=== PATIENT | male | born 1965 | race Caucasian/White ===

== ENCOUNTER 2019-08-15 10:35 | Inpatient (IN) | payer OTHER ==
--- NOTE | 2019-08-15 12:40 | ED ---
General Adult HPI - General Chief complaint: Urogenital Stated complaint: Blood in urine Time Seen by Provider: 08/15/19 11:05 Source: patient, RN notes reviewed Mode of arrival: ambulatory Limitations: no limitations - History of Present Illness Initial comments: This is a 53-year-old male who presents emergency Department with a 6 day history of hematuria. Patient states it started off with just a little pinkish urine and has now progressed to bright red blood with clots. Patient states he was given an antibiotic on Wednesday by his primary medical care doctor even though there was no definitive infection. Patient denies any abdominal pain. P atient denies any dysuria. Patient denies any flank pain. Patient denies any back pain. Patient denies any fever chills per patient denies any history of prostate problems patient denies any history of urinary tract infections. Patient denies any hematuria and the past. Patient denies any trauma. Patient is a smoker. - Related Data Home Medications Medication Instructions Recorded Confirmed Atorvastatin [Lipitor] 20 mg PO AC-SUPPER 11/22/17 08/15/19 Ciprofloxacin HCl [Cipro] 500 mg PO BID 08/15/19 08/15/19 Losartan/Hydrochlorothiazide 1 tab PO DAILY 08/15/19 08/15/19 [Losartan-Hctz 100-25 mg Tab] Allergies Allergy/AdvReac Type Severity Reaction Status Date / Time bee pollen Allergy Anaphylaxis Verified 08/15/19 13:38 Review of Systems ROS Statement: Those systems with pertinent positive or pertinent negative responses have been documented in the HPI. ROS Other: All systems not noted in ROS Statement are negative. Past Medical History Past Medical History: Hyperlipidemia, Hypertension History of Any Multi-Drug Resistant Organisms: None Reported Past Surgical History: Hernia Repair, Orthopedic Surgery, Tonsillectomy Additional Past Surgical History / Comment(s): left shoulder surg. Past Anesthesia/Blood Transfusion Reactions: No Reported Reaction Past Psychological History: No Psychological Hx Reported Smoking Status: Current every day smoker Past Alcohol Use History: Occasional Past Drug Use History: Marijuana General Exam - General Exam Comments Initial Comments: GENERAL: Patient is well-developed and well-nourished. Patient is nontoxic and well- hydrated and is in no acute distress. ENT: Neck is soft and supple. No significant lymphadenopathy is noted. Oropharynx is clear. Moist mucous membranes. Neck has full range of motion without eliciting any pain. EYES: The sclera were anicteric and conjunctiva were pink and moist. Extraocular movements were intact and pupils were equal round and reactive to light. Eyelids were unremarkable. PULMONARY: Unlabored respirations. Good breath sounds bilaterally. No audible rales rhonchi or wheezing was noted. CARDIOVASCULAR: There is a regular rate and rhythm without any murmurs gallops or rubs. ABDOMEN: Soft and nontender with normal bowel sounds. No palpable organomegaly was noted. There is no palpable pulsatile mass. SKIN: Skin is clear with no lesions or rashes and otherwise unremarkable. NEUROLOGIC: Patient is alert and oriented x3. Cranial nerves II through XII are grossly intact. Motor and sensory are also intact. Normal speech, volume and content. Symmetrical smile. MUSCULOSKELETAL: Normal extremities with adequate strength and full range of motion. LYMPHATICS: No significant lymphadenopathy is noted PSYCHIATRIC: Normal psychiatric evaluation. Limitations: no limitations Course Vital Signs 08/15/19 08/15/19 08/15/19 11:01 12:53 13:54 Temperature 98.4 F Pulse Rate 78 Respiratory 17 16 16 Rate Blood Pressure 131/87 O2 Sat by Pulse 97 Oximetry 08/15/19 08/15/19 15:00 17:00 Temperature 97.9 F Pulse Rate 74 Respiratory 16 16 Rate Blood Pressure 146/87 O2 Sat by Pulse 95 Oximetry Medical Decision Making - Medical Decision Making Patient's CAT scan showed an 8 x 8 x 9 cm renal carcinoma with probable metastatic disease regionally and possibly into the lung. I spoke with Dr. Ulloa as well as Dr. Griffin they agreed to accept the patient admission on consult I spoke with Dr. rodriguez and he agreed to accept the patient admitted the patient wrote admitting orders - Lab Data Result diagrams: 08/15/19 12:45 08/15/19 12:45 Lab Results 08/15/19 08/15/19 08/15/19 Range/Units 12:45 12:45 12:45 WBC 9.1 (3.8-10.6) k/uL RBC 5.29 (4.30-5.90) m/uL Hgb 14.6 (13.0-17.5) gm/dL Hct 42.4 (39.0-53.0) % MCV 80.1 (80.0-100.0) fL MCH 27.5 (25.0-35.0) pg MCHC 34.3 (31.0-37.0) g/dL RDW 13.3 (11.5-15.5) % Plt Count 380 (150-450) k/uL Neutrophils % 69 % Lymphocytes % 21 % Monocytes % 7 % Eosinophils % 2 % Basophils % 0 % Neutrophils # 6.2 (1.3-7.7) k/uL Lymphocytes # 1.9 (1.0-4.8) k/uL Monocytes # 0.6 (0-1.0) k/uL Eosinophils # 0.2 (0-0.7) k/uL Basophils # 0.0 (0-0.2) k/uL PT 10.3 (9.0-12.0) sec INR 1.0 (<1.2) APTT 25.3 (22.0-30.0) sec Sodium 141 (137-145) mmol/L Potassium 4.0 (3.5-5.1) mmol/L Chloride 102 (98-107) mmol/L Carbon Dioxide 27 (22-30) mmol/L Anion Gap 12 mmol/L BUN 19 (9-20) mg/dL Creatinine 1.01 (0.66-1.25) mg/dL Est GFR (CKD-EPI)AfAm >90 (>60 ml/min/1.73 sqM) Est GFR (CKD-EPI)NonAf 85 (>60 ml/min/1.73 sqM) Glucose 114 H (74-99) mg/dL Calcium 9.5 (8.4-10.2) mg/dL Total Bilirubin 0.5 (0.2-1.3) mg/dL AST 20 (17-59) U/L ALT 19 L (21-72) U/L Alkaline Phosphatase 117 (38-126) U/L Total Protein 7.9 (6.3-8.2) g/dL Albumin 4.1 (3.5-5.0) g/dL Urine Color Urine Appearance (Clear) Urine RBC (0-5) /hpf Urine WBC (0-5) /hpf 08/15/19 Range/Units 12:45 WBC (3.8-10.6) k/uL RBC (4.30-5.90) m/uL Hgb (13.0-17.5) gm/dL Hct (39.0-53.0) % MCV (80.0-100.0) fL MCH (25.0-35.0) pg MCHC (31.0-37.0) g/dL RDW (11.5-15.5) % Plt Count (150-450) k/uL Neutrophils % % Lymphocytes % % Monocytes % % Eosinophils % % Basophils % % Neutrophils # (1.3-7.7) k/uL Lymphocytes # (1.0-4.8) k/uL Monocytes # (0-1.0) k/uL Eosinophils # (0-0.7) k/uL Basophils # (0-0.2) k/uL PT (9.0-12.0) sec INR (<1.2) APTT (22.0-30.0) sec Sodium (137-145) mmol/L Potassium (3.5-5.1) mmol/L Chloride (98-107) mmol/L Carbon Dioxide (22-30) mmol/L Anion Gap mmol/L BUN (9-20) mg/dL Creatinine (0.66-1.25) mg/dL Est GFR (CKD-EPI)AfAm (>60 ml/min/1.73 sqM) Est GFR (CKD-EPI)NonAf (>60 ml/min/1.73 sqM) Glucose (74-99) mg/dL Calcium (8.4-10.2) mg/dL Total Bilirubin (0.2-1.3) mg/dL AST (17-59) U/L ALT (21-72) U/L Alkaline Phosphatase (38-126) U/L Total Protein (6.3-8.2) g/dL Albumin (3.5-5.0) g/dL Urine Color Dark Red Urine Appearance Bloody (Clear) Urine RBC >182 H (0-5) /hpf Urine WBC >182 H (0-5) /hpf Disposition Clinical Impression: Renal mass Disposition: ADMITTED IP TO THIS [facility] Referrals: Dilip Guthrie MD [Primary Care Provider] - 1-2 days Time of Disposition: 16:00
[2019-08-15 13:01] LABS: Basophils % (A) 0 %; Eosinophils # (A) 0.2 k/uL (0-0.7); Eosinophils % (A) 2 %; HCT 42.4 % (39.0-53.0); HGB 14.6 gm/dL (13.0-17.5); Lymphocytes # (A) 1.9 k/uL (1.0-4.8); Lymphocytes % (A) 21 %; MCH 27.5 pg (25.0-35.0); MCHC 34.3 g/dL (31.0-37.0); MCV 80.1 fL (80.0-100.0); Mean Platelet Volume 5.5; Monocytes # (A) 0.6 k/uL (0-1.0); Monocytes % (A) 7 %; Neutrophils # (A) 6.2 k/uL (1.3-7.7); Neutrophils % (A) 69 %; Platelet Count 380 k/uL (150-450); RBC 5.29 m/uL (4.30-5.90); RDW 13.3 % (11.5-15.5); WBC 9.1 k/uL (3.8-10.6)
[2019-08-15 13:07] LABS: Partial Thromboplastin Time 25.3 sec (22.0-30.0); Prothrombin Time 10.3 sec (9.0-12.0)
[2019-08-15 13:09] LABS: ALT 19 U/L (21-72); AST 20 U/L (17-59); African American GFR (CKD) >90 (>60 ml/min/1.73 sqM); Albumin 4.1 g/dL (3.5-5.0); Alkaline Phosphatase 117 U/L (38-126); Anion Gap 12 mmol/L; Blood Urea Nitrogen 19 mg/dL (9-20); Calcium 9.5 mg/dL (8.4-10.2); Carbon Dioxide 27 mmol/L (22-30); Chloride 102 mmol/L (98-107); Glucose 114 mg/dL (74-99); Non-African American GFR(CKD) 85 (>60 ml/min/1.73 sqM); Sodium 141 mmol/L (137-145); Total Bilirubin 0.5 mg/dL (0.2-1.3); Total Protein 7.9 g/dL (6.3-8.2)
[2019-08-15 13:15] LABS: RBC,Urine >182 /hpf (0-5); WBC,Urine >182 /hpf (0-5)
[2019-08-15 13:17] LABS: Appearance,Urine Bloody (Clear); Color,Urine Dark Red
--- NOTE | 2019-08-15 13:47 | US ---
EXAMINATION TYPE: US kidneys/renal and bladder DATE OF EXAM: 08/15/2019 COMPARISON: NONE CLINICAL HISTORY: Hematuria . Macroscopic hematuria. No pain. Patient states voiding about 10 minut es before start of exam. EXAM MEASUREMENTS: Right Kidney: 10.9 x 5.3 x 3.9 cm Left Kidney: 11.4 x 5.3 x 6.3 cm Right Kidney: No hydronephrosis or masses seen Left Kidney: Appears lobular. Questionable cortical mass versus dromedary hump measuring 3.0 x 2.5 x 3.3 cm. Multiple lower pole calcifications visualized, largest = 1.1 cm. Cystic appearing lesion in lower pole = 3.6 x 3.0 x 2.9 with partial peripheral calcification. Limited visualization due to cindy wel gas. Bladder: mildly distended, anechoic Bilateral Jets seen There is no evidence for hydronephrosis at this point in time. The urinary bladder is anechoic. Bila teral ureteral jets are seen. IMPRESSION: 1. Questionable solid mass on the left mid pole measuring 3.3 cm. Three-phase CT abdomen is recommend ed for further evaluation on a nonemergent basis as this could be neoplastic. 2. Complex cystic mass of the left kidney contains a single thin internal septation. Adjacent calcifi cations appear to be near distal calyces and likely represent nonobstructing renal calculi measuring up to 1.1 cm. No discrete left-sided hydronephrosis. 2. Right kidney is unremarkable without hydronephrosis nor nephrolithiasis.
--- NOTE | 2019-08-15 15:26 | CT ---
EXAMINATION TYPE: CT abdomen pelvis w con DATE OF EXAM: 08/15/2019 COMPARISON: Ultrasound 08/15/2019 HISTORY: 53-year-old male Hematuria with possible kidney mass TECHNIQUE: Contiguous axial scanning of the abdomen and pelvis following administration of 100 ml Iso barry 300 IV contrast. Delayed images through the kidneys and coronal/sagittal reconstructions perform ed. CT DLP: 1078.5 mGycm Automated exposure control for dose reduction was used. FINDINGS: Heart normal size without pericardial effusion. All Mild dependent subpleural atelectasis. Indeterminate poorly defined 1.6 posterior left basal pulmonary nodule. Additional bibasilar pulmonar y nodules are present measuring 9 mm on the right and 9 mm on the left as well. No pleural effusion. No focal liver lesion or biliary ductal dilatation. Portal venous system is patent. Gallbladder, right adrenal gland, right kidney, spleen, and pancreas appear within normal limits. There is a large complex, mixed solid and cystic, primarily solid, heterogeneously enhancing mass quentin tered within the mid aspect of the kidney extending into the renal sinus region. This measures up to 8.9 cm craniocaudal by 7.6 cm wide by 8.3 cm AP. Some associated calcifications are present. Some soft tissue irregularity posterior left pararenal space measures 1.0 cm. Additional left suprare nal and adrenal nodularity is also noted measuring up to 1.9 cm. The left renal vein remains patent. There is an enlarged left periaortic retroperitoneal lymph node measuring 1.9 cm. No dilated small bowel, free fluid, or free air. Circumferential wall thickening mid sigmoid colon with diverticulosis. No pericolonic inflammatory ch brenna. Suspect prior right inguinal mesh repair. Mild circumferential bladder wall thickening. Prostate gland measures 4.5 cm with central calcificati ons. No abnormal fluid collection in the pelvis or pelvic lymphadenopathy. Bones: Mild degenerative changes at the hips. Right L5 hemisacralization and degenerative disc diseas e L4-L5 and to a lesser extent at L3-L4. IMPRESSION: 1. A LARGE LEFT RENAL RCC MEASURING 8.9 X 8.3 X 7.6 CM LOCATED ALONG THE MID ASPECT OF THE KIDNEY EXT ENDING INTO THE RENAL SINUS REGION. SOFT TISSUE NODULARITY IN THE POSTERIOR LEFT PARARENAL SPACE AND ALSO IN THE SUPRARENAL/LEFT ADRENAL REGION MEASURES UP TO 1.9 CM, SUSPICIOUS FOR REGIONAL METASTATIC DISEASE. 2. ADDITIONAL SUSPICIOUS LEFT PARA-AORTIC LYMPH NODE MEASURES 1.9 CM. 3. BIBASILAR PULMONARY NODULES MEASURING UP TO 1.6 CM ARE ALSO SEEN SUSPICIOUS FOR METASTATIC DISEASE . 4. SIGMOID DIVERTICULOSIS. THERE IS SOME MILD WALL THICKENING HERE PROBABLY REPRESENTING CHRONIC DIVE RTICULITIS. NO ACUTE INFLAMMATION SEEN. 5. MILD CIRCUMFERENTIAL BLADDER WALL THICKENING COULD REPRESENT CHRONIC BLADDER WALL HYPERTROPHY OR C YSTITIS. CLINICAL CORRELATE.
[2019-08-15] MEDS ORDERED: LORazepam 2 MG/ML INJ IV STA (17:00)
[2019-08-15] MEDS ORDERED: LORazepam 2 MG/ML INJ IV PRN (17:03)
[2019-08-15] MEDS ORDERED: SODIUM CHLORIDE 0.9% 1,000 ML IV ONE (17:05)
[2019-08-15 22:20] VITALS: BMI 28.8
[2019-08-15] MEDS: ATORVASTATIN 20 MG TAB PO SCH (22:25)
[2019-08-15] MEDS: LOSARTAN-HCTZ 50-12.5 MG 1 EACH TAB PO SCH (22:48)
[2019-08-16] MEDS: LOSARTAN-HCTZ 50-12.5 MG 1 EACH TAB PO SCH (07:51)
[2019-08-16 08:20] LABS: Basophils # (A) 0.1 k/uL (0-0.2); Basophils % (A) 1 %; Eosinophils # (A) 0.2 k/uL (0-0.7); Eosinophils % (A) 2 %; HCT 43.2 % (39.0-53.0); HGB 14.2 gm/dL (13.0-17.5); Lymphocytes # (A) 1.5 k/uL (1.0-4.8); Lymphocytes % (A) 16 %; MCV 82.1 fL (80.0-100.0); Mean Platelet Volume 5.5; Monocytes # (A) 0.5 k/uL (0-1.0); Monocytes % (A) 6 %; Neutrophils # (A) 6.7 k/uL (1.3-7.7); Neutrophils % (A) 74 %; Platelet Count 359 k/uL (150-450); RBC 5.26 m/uL (4.30-5.90); RDW 13.3 % (11.5-15.5); WBC 9.2 k/uL (3.8-10.6)
[2019-08-16 08:56] LABS: Calcium 9.1 mg/dL (8.4-10.2); Potassium 4.3 mmol/L (3.5-5.1)
[2019-08-16] MEDS ORDERED: RX INFO: IV CONTRAST WAS GIVEN 1 EACH MISC MISCELLANE PRN (12:01)
--- NOTE | 2019-08-16 12:08 | P.GSCN ---
History of Present Illness Consult date: 08/16/19 History of present illness: This is a pleasant 53-year-old gentleman who came to the emergency room last night after several day history of gross hematuria including clots. He was asymptomatic. 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 He noticed the blood and came back home to [place]. All in the emergency room abdominal ultrasound followed by a CAT scan was performed. The CAT scan showed an 8 cm left upper pole mass consistent with a renal cell carcinoma. There appears to be a 2 cm enlarged lymph node in the left renal hilum. There is also a possible nodule in the adrenal gland and possible tiny bibasilar pulmonary nodules. The patient is a smoker. Prior to this last week he has not had hematuria. He is not having abdominal pain weight loss or other urologic issues. He has never seen a urologist before. He has no pain. Review of Systems All systems: negative Past Medical History Past Medical History: Hyperlipidemia, Hypertension History of Any Multi-Drug Resistant Organisms: None Reported Past Surgical History: Hernia Repair, Orthopedic Surgery, Tonsillectomy Additional Past Surgical History / Comment(s): left shoulder surg. Past Anesthesia/Blood Transfusion Reactions: No Reported Reaction Past Psychological History: No Psychological Hx Reported Additional Psychological History / Comment(s): Lives in own home, lives with and has cat. 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 Smoking Status: Current every day smoker Past Alcohol Use History: Occasional Additional Past Alcohol Use History / Comment(s): 1ppd, has smoked for >30 years. Drinks once or twice a month. Past Drug Use History: Marijuana Additional Drug Use History / Comment(s): Occassionally. - Past Family History Mother Additional Family Medical History / Comment(s): Thyroid Father Family Medical History: Cancer Medications and Allergies Home Medications Medication Instructions Recorded Confirmed Type Atorvastatin [Lipitor] 20 mg PO AC-SUPPER 11/22/17 08/15/19 History Ciprofloxacin HCl [Cipro] 500 mg PO BID 08/15/19 08/15/19 History Losartan/Hydrochlorothiazide 1 tab PO DAILY 08/15/19 08/15/19 History [Losartan-Hctz 100-25 mg Tab] Allergies Allergy/AdvReac Type Severity Reaction Status Date / Time bee pollen Allergy Anaphylaxis Verified 08/15/19 13:38 Surgical - Exam Vital Signs Temp Pulse Resp BP Pulse Ox 98.4 F 78 17 131/87 97 08/15/19 11:01 08/15/19 11:01 08/15/19 11:01 08/15/19 11:01 08/15/19 11:01 - General well developed, well nourished, no distress - Eyes PERRL - ENT poor prison - Neck no masses, trachea midline - Respiratory normal expansion, normal respiratory effort - Cardiovascular Rhythm: regular - Abdomen Abdomen: soft, non tender - Genitourinary normal penis with no external lesions, testicles present - Integumentary no rash - Neurologic normal coordination, combative, deep tendon reflexes, memory loss Results - Labs 08/16/19 07:19 08/16/19 07:19 Abnormal Lab Results - Last 24 Hours (Table) 08/15/19 08/15/19 08/16/19 Range/Units 12:45 12:45 07:19 Glucose 114 H 102 H (74-99) mg/dL ALT 19 L (21-72) U/L Urine RBC >182 H (0-5) /hpf Urine WBC >182 H (0-5) /hpf Microbiology - Last 24 Hours (Table) 08/15/19 12:45 Urine Culture - Preliminary Urine,Voided Diabetes panel 08/15/19 08/16/19 Range/Units 12:45 07:19 Sodium 141 141 (137-145) mmol/L Potassium 4.0 4.3 (3.5-5.1) mmol/L Chloride 102 103 (98-107) mmol/L Carbon Dioxide 27 27 (22-30) mmol/L BUN 19 17 (9-20) mg/dL Creatinine 1.01 1.09 (0.66-1.25) mg/dL Glucose 114 H 102 H (74-99) mg/dL Calcium 9.5 9.1 (8.4-10.2) mg/dL AST 20 (17-59) U/L ALT 19 L (21-72) U/L Alkaline Phosphatase 117 (38-126) U/L Total Protein 7.9 (6.3-8.2) g/dL Albumin 4.1 (3.5-5.0) g/dL Calcium panel 08/15/19 08/16/19 Range/Units 12:45 07:19 Calcium 9.5 9.1 (8.4-10.2) mg/dL Albumin 4.1 (3.5-5.0) g/dL Pituitary panel 08/15/19 08/16/19 Range/Units 12:45 07:19 Sodium 141 141 (137-145) mmol/L Potassium 4.0 4.3 (3.5-5.1) mmol/L Chloride 102 103 (98-107) mmol/L Carbon Dioxide 27 27 (22-30) mmol/L BUN 19 17 (9-20) mg/dL Creatinine 1.01 1.09 (0.66-1.25) mg/dL Glucose 114 H 102 H (74-99) mg/dL Calcium 9.5 9.1 (8.4-10.2) mg/dL Adrenal panel 08/15/19 08/16/19 Range/Units 12:45 07:19 Sodium 141 141 (137-145) mmol/L Potassium 4.0 4.3 (3.5-5.1) mmol/L Chloride 102 103 (98-107) mmol/L Carbon Dioxide 27 27 (22-30) mmol/L BUN 19 17 (9-20) mg/dL Creatinine 1.01 1.09 (0.66-1.25) mg/dL Glucose 114 H 102 H (74-99) mg/dL Calcium 9.5 9.1 (8.4-10.2) mg/dL Total Bilirubin 0.5 (0.2-1.3) mg/dL AST 20 (17-59) U/L ALT 19 L (21-72) U/L Alkaline Phosphatase 117 (38-126) U/L Total Protein 7.9 (6.3-8.2) g/dL Albumin 4.1 (3.5-5.0) g/dL - Imaging CT scan - abdomen: report reviewed, image reviewed CT scan - pelvis: report reviewed, image reviewed Assessment and Plan Assessment: Impression: Probable left renal cell carcinoma. But less likely to be a transitional cell carcinoma or even remotely a lymphoma. This most likely is locally invasive with a positive lymph node and possible adrenal spread. The abnormalities in the bases of the lungs are more concerning and if positive then he would indeed be metastatic renal cell carcinoma. He has been seen by oncology and a CAT scan of the chest has been ordered.. Once metastatic evaluation has been completed then we'll decide how to approach the cancer, whether it needs to be biopsied or not. This was discussed at length with the patient and his . He understands the approach. Pending the CAT scan of the chest as to further urologic recommendations. Time with Patient: Greater than 30
--- NOTE | 2019-08-16 12:11 | P.CONS ---
History of Present Illness - Reason for Consult Consult date: 08/16/19 Renal mass, lung nodules - History of Present Illness The patient is a 53-year-old white male with overall minor and well-controlled medical problems. The patient states that he developed bleeding in the urine over the last 2-3 days. As this is persistent he came into the emergency room. He had an Ultrasound done, which showed evidence of possible mass in the left kidney. There is CT scan of the abdomen and pelvis This confirmed the presence of a large, complex solid and cystic mass in the central portion of the left kidney with the largest dimension 8.9 cm. There also appeared to be bilateral lung nodules and the visualized lung bases. Consult was therefore placed for further evaluation and recommendations. He denied any prior history of malignancy. He denied any pain in the abdomen, flanks, or on urination. No history of any weight loss. He is a current smoker. Review of Systems Constitutional: Denies chills, Denies fever Eyes: denies blurred vision, denies pain Ears: deny: decreased hearing, ear discharge, earache, tinnitus Ears, nose, mouth and throat: Denies headache, Denies sore throat Cardiovascular: Denies chest pain, Denies shortness of breath Respiratory: Denies cough Gastrointestinal: Denies abdominal pain, Denies diarrhea, Denies nausea, Denies vomiting Genitourinary: Reports as per HPI, Reports hematuria Musculoskeletal: Denies myalgias Integumentary: Denies pruritus, Denies rash Neurological: Denies numbness, Denies weakness Psychiatric: Denies anxiety, Denies depression Endocrine: Denies fatigue, Denies weight change Hematologic/Lymphatic: Reports as per HPI Past Medical History Past Medical History: Hyperlipidemia, Hypertension History of Any Multi-Drug Resistant Organisms: None Reported Past Surgical History: Hernia Repair, Orthopedic Surgery, Tonsillectomy Additional Past Surgical History / Comment(s): left shoulder surg. Past Anesthesia/Blood Transfusion Reactions: No Reported Reaction Past Psychological History: No Psychological Hx Reported Additional Psychological History / Comment(s): Lives in own home, lives with and has cat. 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 Smoking Status: Current every day smoker Past Alcohol Use History: Occasional Additional Past Alcohol Use History / Comment(s): 1ppd, has smoked for >30 years. Drinks once or twice a month. Past Drug Use History: Marijuana Additional Drug Use History / Comment(s): Occassionally. - Past Family History Mother Additional Family Medical History / Comment(s): Thyroid Father Family Medical History: Cancer Medications and Allergies Home Medications Medication Instructions Recorded Confirmed Type Atorvastatin [Lipitor] 20 mg PO AC-SUPPER 11/22/17 08/15/19 History Ciprofloxacin HCl [Cipro] 500 mg PO BID 08/15/19 08/15/19 History Losartan/Hydrochlorothiazide 1 tab PO DAILY 08/15/19 08/15/19 History [Losartan-Hctz 100-25 mg Tab] Allergies Allergy/AdvReac Type Severity Reaction Status Date / Time bee pollen Allergy Anaphylaxis Verified 08/15/19 13:38 Physical Exam Vitals: Vital Signs Temp Pulse Pulse Pulse Resp BP BP 08/16/19 05:00 97.8 F 68 16 113/71 08/15/19 21:41 97.9 F 69 16 123/76 08/15/19 21:23 98.3 F 72 16 146/78 08/15/19 20:00 16 08/15/19 19:00 66 16 08/15/19 17:00 97.9 F 74 16 146/87 08/15/19 15:00 16 08/15/19 13:54 16 08/15/19 12:53 16 Pulse Ox 08/16/19 05:00 94 L 08/15/19 21:41 93 L 08/15/19 21:23 98 08/15/19 20:00 08/15/19 19:00 99 08/15/19 17:00 95 08/15/19 15:00 08/15/19 13:54 08/15/19 12:53 Intake and Output 08/15/19 08/16/19 08/16/19 22:59 06:59 14:59 Intake Total 675 1080 Balance 675 1080 Intake: Intake, IV Titration 75 600 Amount Sodium Chloride 0.9% 1, 75 600 000 ml @ 75 mls/hr IV . [id number] Rx#:[id number] Oral 600 480 Other: Voiding Method Toilet Toilet # Voids 2 2 - Constitutional General appearance: no acute distress - EENT Eyes: EOMI, PERRLA ENT: hearing grossly normal, normal oropharynx - Neck Neck: no lymphadenopathy Thyroid: bilateral: normal size - Respiratory Respiratory: bilateral: CTA - Cardiovascular Rhythm: regular Heart sounds: normal: S1, S2 - Gastrointestinal General gastrointestinal: normal bowel sounds, soft - Integumentary Integumentary: normal - Neurologic Neurologic: CNII-XII intact - Musculoskeletal Musculoskeletal: generalized weakness, strength equal bilaterally - Psychiatric Psychiatric: A&O x's 3, appropriate affect Results CBC & Chem 7: 08/16/19 07:19 08/16/19 07:19 Labs: Abnormal Lab Results - Last 24 Hours (Table) 08/15/19 08/15/19 08/16/19 Range/Units 12:45 12:45 07:19 Glucose 114 H 102 H (74-99) mg/dL ALT 19 L (21-72) U/L Urine RBC >182 H (0-5) /hpf Urine WBC >182 H (0-5) /hpf Microbiology - Last 24 Hours (Table) 08/15/19 12:45 Urine Culture - Preliminary Urine,Voided Chest x-ray: report reviewed CT scan - abdomen: report reviewed CT scan - pelvis: report reviewed Assessment and Plan Plan: #1. Renal mass and lung nodules the clinical picture is highly suspicious for malignancy, with possible metastasis to the lung. The ultrasound report and CT scan reports as well as implications were discussed in detail with the patient and his family. Possibilities including renal cell carcinoma, as well as urothelial carcinoma of the kidney. The patient will need a biopsy to establish diagnosis and for further treatment recommendations. - Check CT scan of the chest, as well as bone scan for further staging - Consult interventional radiology for biopsy. Targets could include the renal mass, as well as lung nodules if these are found to be appropriate. - Urology has also been consulted. #2. Hematuria while this was quite significant visually, the patient does not appear to have had significant blood loss with hemoglobin actually stable in the 14 range. In fact, today urine appears to be clear. Continue to monitor while inpatient. Urology is on consult. If he has recurrent significant hematuria he'll likely require intervention.
--- NOTE | 2019-08-16 16:19 | CT ---
EXAMINATION TYPE: CT biopsy renal LT DATE OF EXAM: 08/16/2019 HISTORY: Left renal mass COMPARISON: CT 08/15/2019 Maximal barrier technique was utilized. The skin overlying a suitable path to the lesion was localiz ed using CT and the overlying skin was prepped and draped. Lidocaine used for local anesthesia. A s kin kassy made with a scalpel. Using CT guidance, access was gained to the lesion with an 18-gauge ne edle coaxially through a 17-gauge needle guide. Aspirated specimen submitted to cytology. 3 passes were performed in all. Following the procedure no immediate complications. The patient is discharg ed in stable condition. Hemostasis achieved. IMPRESSION: SUCCESSFUL CT GUIDED LEFT RENAL BIOPSY. PATHOLOGY PENDING. THIS PROCEDURE WAS PERFORMED BY THE [facility] STUART.
--- NOTE | 2019-08-16 16:23 | CT ---
EXAMINATION TYPE: CT chest w con DATE OF EXAM: 08/16/2019 COMPARISON: NONE HISTORY: Lung nodules, renal mass. CT DLP: 565 mGycm. Automated Exposure Control for Dose Reduction was Utilized. TECHNIQUE: CT scan of the thorax is performed following with IV Contrast, patient injected with 100 mL of Isovue M300. FINDINGS: LUNGS: Mild to moderate underlying emphysematous change. Scattered small nodules throughout the bilat eral lungs are present. For reference 5 to 6 mm lingular nodule image 40. For reference 1.5 x 1.3 cm cavitary lesion left lower lobe axial image 36. For reference 9 x 8 mm right lower lobe nodule axial image 36. For reference 9 x 8 mm right upper lobe nodule image 21. No pleural effusion or pneumothora x is seen bilaterally. MEDIASTINUM: There are abnormal thoracic lymph nodes or masses. For reference. 2.8 x 1.6 cm heteroge neous hyperdense prevascular lesion axial image 20. Abnormal right suprahilar mass axial image 21 is noted. No cardiomegaly or pericardial effusion is seen. OTHER: There is partial visualization of known suspicious anterior solid renal mass probable primary neoplasm. Sclerotic area superior right T1 vertebral body level coronal image 51 could reflect early metastatic lesion. IMPRESSION: Probable metastatic disease to the lung parenchyma and thoracic lymph nodes from primary renal cell carcinoma given the hyperdense appearance to the thoracic lymph nodes.
[2019-08-16] MEDS: ATORVASTATIN 20 MG TAB PO SCH (20:48)
[2019-08-16] MEDS ORDERED: LOSARTAN-HCTZ 50-12.5 MG 1 EACH TAB PO SCH (21:00)
--- NOTE | 2019-08-16 21:22 | P.HPIM ---
History of Present Illness H&P Date: 08/16/19 Chief Complaint: Blood in the urine History of presenting complaint: This is a pleasant 53-year-old patient of Dr. Dilip Guthrie. Patient last noticed some blood in the urine. Also noticed some blood this Wednesday. Was sent in here. Is no change in his weight. No weight loss. Appetite is fair. No abdominal pain. No fever no chills. Abdominal ultrasound showed a left kidney mass and a computed tomography scan did show multiple complex mass of the left kidney. Consultations were made to urology and oncology. Patient is a smoker. No fever no chills. Review of systems: GEN.: None EYES: None HEENT: None NECK: None RESPIRATORY: None CARDIOVASCULAR: None GASTROINTESTINAL: None GENITOURINARY: As above MUSCULOSKELETAL: None LYMPHATICS: None HEMATOLOGICAL: None PSYCHIATRY: None NEUROLOGICAL: None. Social history: . Smokes a pack a day for over 30 years. Marijuana occasionally.: Occasionally. 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 EYES: Pupils equal. Conjunctiva normal. HEENT: External appearance of nose and ears normal, oral cavity grossly normal. NECK: JVD not raised; masses not palpable. HEART: First and second heart sounds are normal; no edema. LUNGS: Respiratory rate normal; clear to auscultation. ABDOMEN: Soft, nontender, liver spleen not palpable, no masses palpable. PSYCH: Alert and oriented x3; mood and affect normal. NEUROLOGICAL: Cranial nerves grossly intact; no facial asymmetry, power and sensation grossly intact. LYMPHATICS: No lymph nodes palpable in the axilla and neck INVESTIGATIONS, reviewed in the clinical context: White count 9.2 hemoglobin 14.2 potassium 4.3 creatinine 1.0 Abdominal ultrasound-choose a left kidney mass Computed tomography scan of the abdomen-left adrenal mass 8.98.37.6 cm, suspicious left but aortic lymph node 1.9 cm, bibasilar pulmonary nodules, sigmoid diverticulosis Assessment: -Suspicion for metastatic disease including a large left renal mass, but pulmonary nodules andpara-aortic lymph nodes -Hematuria from above -Sigmoid diverticulosis, asymptomatic -Chronic nicotine dependence patient cigarette smoker -Recreational marijuana use Plan: Consultations made to urology at oncology. Left kidney biopsy was ordered by interventional radiology. Care was discussed with the patient. Nicotine patch will be ordered Past Medical History Past Medical History: Hyperlipidemia, Hypertension History of Any Multi-Drug Resistant Organisms: None Reported Past Surgical History: Hernia Repair, Orthopedic Surgery, Tonsillectomy Additional Past Surgical History / Comment(s): left shoulder surg. Past Anesthesia/Blood Transfusion Reactions: No Reported Reaction Past Psychological History: No Psychological Hx Reported Additional Psychological History / Comment(s): Lives in own home, lives with and has cat. 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 Smoking Status: Current every day smoker Past Alcohol Use History: Occasional Additional Past Alcohol Use History / Comment(s): 1ppd, has smoked for >30 years. Drinks once or twice a month. Past Drug Use History: Marijuana Additional Drug Use History / Comment(s): Occassionally. - Past Family History Mother Additional Family Medical History / Comment(s): Thyroid Father Family Medical History: Cancer Medications and Allergies Home Medications Medication Instructions Recorded Confirmed Type Atorvastatin [Lipitor] 20 mg PO AC-SUPPER 11/22/17 08/15/19 History Ciprofloxacin HCl [Cipro] 500 mg PO BID 08/15/19 08/15/19 History Losartan/Hydrochlorothiazide 1 tab PO DAILY 08/15/19 08/15/19 History [Losartan-Hctz 100-25 mg Tab] Allergies Allergy/AdvReac Type Severity Reaction Status Date / Time bee pollen Allergy Anaphylaxis Verified 08/15/19 13:38 Physical Exam Vitals: Vital Signs Temp Pulse Pulse Pulse Resp BP BP 08/16/19 05:00 97.8 F 68 16 113/71 08/15/19 21:41 97.9 F 69 16 123/76 08/15/19 21:23 98.3 F 72 16 146/78 08/15/19 20:00 16 08/15/19 19:00 66 16 08/15/19 17:00 97.9 F 74 16 146/87 08/15/19 15:00 16 08/15/19 13:54 16 08/15/19 12:53 16 08/15/19 11:01 98.4 F 78 17 131/87 Pulse Ox 08/16/19 05:00 94 L 08/15/19 21:41 93 L 08/15/19 21:23 98 08/15/19 20:00 08/15/19 19:00 99 08/15/19 17:00 95 08/15/19 15:00 08/15/19 13:54 08/15/19 12:53 08/15/19 11:01 97 Intake and Output 08/15/19 08/16/19 08/16/19 22:59 06:59 14:59 Intake Total 675 1080 Balance 675 1080 Intake: Intake, IV Titration 75 600 Amount Sodium Chloride 0.9% 1, 75 600 000 ml @ 75 mls/hr IV . [id number] ONE Rx#:[id number] Oral 600 480 Other: Voiding Method Toilet Toilet # Voids 2 2 Results CBC & Chem 7: 08/16/19 07:19 08/16/19 07:19 Labs: Abnormal Lab Results - Last 24 Hours (Table) 08/15/19 08/15/19 08/16/19 Range/Units 12:45 12:45 07:19 Glucose 114 H 102 H (74-99) mg/dL ALT 19 L (21-72) U/L Urine RBC >182 H (0-5) /hpf Urine WBC >182 H (0-5) /hpf Microbiology - Last 24 Hours (Table) 08/15/19 12:45 Urine Culture - Preliminary Urine,Voided Thrombosis Risk Factor Assmnt - Choose All That Apply Each Factor Represents 1 point: Age 41-60 years, Obesity (BMI >25) Thrombosis Risk Factor Assessment Total Risk Factor Score: 2 Thrombosis Risk Factor Assessment Level: Low Risk
--- NOTE | 2019-08-17 11:17 | P.PN ---
Subjective Progress Note Date: 08/17/19 The patient is in the hospital with gross hematuria. He has a large left renal mass consistent with renal cell carcinoma. He had a biopsy yesterday. He had a CAT scan of the chest that was consistent with multiple metastases both of the mediastinum as well as the parenchyma. Pending the bone scan and pathology as to how oncology will treat him. Whether they recommend a nephrectomy will be dependent on response of the chemo I suspect. Elias this will be discussed with Objective - Vital Signs Vital signs: Vital Signs Temp 97.9 F 08/17/19 04:02 Pulse 71 08/17/19 04:02 Resp 20 08/17/19 04:02 BP 103/64 08/17/19 04:02 Pulse Ox 94 L 08/17/19 04:02 Intake & Output 08/16/19 08/17/19 08/17/19 18:59 06:59 18:59 Intake Total 750 1200 Balance 750 1200 Intake: Intake, IV Titration 750 600 Amount Sodium Chloride 0.9% 1, 750 600 000 ml @ 75 mls/hr IV . [id number] ONE Rx#:[id number] Oral 600 Other: Voiding Method Toilet Toilet Toilet # Voids 2 - Labs CBC & Chem 7: 08/16/19 07:19 08/16/19 07:19 Labs: Microbiology - Last 24 Hours (Table) 08/15/19 12:45 Urine Culture - Final Urine,Voided
--- NOTE | 2019-08-17 12:09 | NM ---
EXAMINATION TYPE: NM bone scan whole body DATE OF EXAM: 08/17/2019 COMPARISON: NONE HISTORY: renal mass, lung nodules Delayed whole-body scanning was performed following the injection of 24.2 mCi Tc 99m MDP. Images acq uired 3 hours post injection. FINDINGS: Degenerative uptake identified mid thoracic spine. No hyperintense lesions seen. No photopenic lesion s identified. Left-sided periodontal disease noted. IMPRESSION: No scintigraphic evidence to suggest metastatic disease at this time.
[2019-08-17 12:26] VITALS: BP 125/76; PULSE 66; RESP 16; TEMP 98.6
--- NOTE | 2019-08-17 16:19 | P.DS ---
Providers Date of admission: 08/15/19 17:05 Expected date of discharge: 08/17/19 Attending physician: Logan Allen Consults: 08/15/19 17:05 Consult Physician Urgent Consulting Provider: Gus Díaz Consult Reason/Comments: Renal mass Do you want consulting provider notified?: Yes Consult Physician Urgent Consulting Provider: Jere Griffin Consult Reason/Comments: Renal mass Do you want consulting provider notified?: Yes Primary care physician: Dilip Guthrie [facility] Course: Chief Complaint: Blood in the urine Hospital course: This is a pleasant 53-year-old patient of Dr. Dilip Guthrie. Patient last noticed some blood in the urine. Also noticed some blood this Wednesday. Was sent in here. Is no change in his weight. No weight loss. Appetite is fair. No abdominal pain. No fever no chills. Abdominal ultrasound showed a left kidney mass and a computed tomography scan did show multiple complex mass of the left kidney. Consultations were made to urology and oncology. Patient is a smoker. No fever no chills. On August 16 patient underwent a left kidney biopsy. Results of which are pending. Did underwent a bone scan this morning. That was negative. Patient will follow up with with oncology and urology as outpatient pending results of the biopsy. This was discussed with the patient and the . Questions were answered. Consultation: Dr. Griffin from oncology Dr. Ulloa from urology Physical examination: VITAL SIGNS: 98.6, 66, 16, 125/76, 97% on room air GENERAL: Sitting up comfortable EYES: Pupils equal. Conjunctiva normal. HEENT: External appearance of nose and ears normal, oral cavity grossly normal. NECK: JVD not raised; masses not palpable. HEART: First and second heart sounds are normal; no edema. LUNGS: Respiratory rate normal; clear to auscultation. ABDOMEN: Soft, nontender, liver spleen not palpable, no masses palpable. PSYCH: Alert and oriented x3; mood and affect normal. INVESTIGATIONS, reviewed in the clinical context: White count 9.2 hemoglobin 40.2 potassium 4.3 crit 1.09 Bone scan-negative for metastatic disease Abdominal ultrasound-choose a left kidney mass Computed tomography scan of the abdomen-left adrenal mass 8.98.37.6 cm, suspicious left but aortic lymph node 1.9 cm, bibasilar pulmonary nodules, sigmoid diverticulosis Discharge diagnosis: -Suspicion for metastatic disease including a large left renal mass, with pulmonary nodules and para-aortic lymph nodes -Hematuria from above -Sigmoid diverticulosis, asymptomatic -Chronic nicotine dependence patient cigarette smoker -Recreational marijuana use Disposition: Home Patient Condition at Discharge: Undetermined Plan - Discharge Summary Discharge Rx Participant: No New Discharge Prescriptions: Continue Atorvastatin [Lipitor] 20 mg PO AC-SUPPER Losartan/Hydrochlorothiazide [Losartan-Hctz 100-25 mg Tab] 1 tab PO DAILY Discontinued Ciprofloxacin HCl [Cipro] 500 mg PO BID Discharge Medication List Atorvastatin [Lipitor] 20 mg PO AC-SUPPER 11/22/17 [History] Losartan/Hydrochlorothiazide [Losartan-Hctz 100-25 mg Tab] 1 tab PO DAILY 08/15/19 [History] Follow up Appointment(s)/Referral(s): Jere Griffin MD [STAFF PHYSICIAN] - 1 Week (Dr. Griffin's office will call patient with an appointment date and time. ) Dilip Guthrie MD [Primary Care Provider] - 08/23/19 1:15 pm Gus Díaz MD [STAFF PHYSICIAN] - 08/21/19 8:40 am Patient Instructions/Handouts: Percutaneous Kidney Biopsy (DC), Bone Scan (DC)
== END 2019-08-17 16:40 | disposition home or self-care (01) | DRG 687 ==
LOC: EC 10:35 → 3NMEDONC 17:05
PROVIDERS: ADMIT Hospitalist; ATTEND Hospitalist
PROC: 0TB13ZX Excision of Left Kidney, Percutaneous Approach, Diagnostic (ICD-10-PCS; principal; 2019-08-15)
DX: C64.2 Malignant neoplasm of left kidney, except renal pelvis (principal); C78.1 Secondary malignant neoplasm of mediastinum; E78.5 Hyperlipidemia, unspecified; F17.210 Nicotine dependence, cigarettes, uncomplicated; I10 Essential (primary) hypertension; K57.30 Diverticulosis of large intestine without perforation or abscess without bleeding; E27.9 Disorder of adrenal gland, unspecified; R91.8 Other nonspecific abnormal finding of lung field; R59.9 Enlarged lymph nodes, unspecified; Z91.030 Bee allergy status; Z79.899 Other long term (current) drug therapy
CPT/HCPCS: 36415; 71260; 74177; 76770; 77012; 78306; 80048; 80053; 81001; 85025; 85610; 85730; 87086; 88305; 96374; 99284

== ENCOUNTER → 2019-12-22 | Outpatient (CLI) | payer OTHER ==
[2019-12-22 12:49] LABS: African American GFR (CKD) >90 (>60 ml/min/1.73 sqM); Blood Urea Nitrogen 20 mg/dL (9-20); Non-African American GFR(CKD) 85 (>60 ml/min/1.73 sqM)
--- NOTE | 2019-12-22 16:07 | CT ---
EXAMINATION TYPE: CT ChestAbdPelvis w con DATE OF EXAM: 12/22/2019 COMPARISON: CT chest 08/16/[address] abdomen and pelvis 08/15/2019 HISTORY: 54-year-old male F/U FOR RENAL CA TECHNIQUE: Contiguous axial scanning of the chest, abdomen, and pelvis performed with IV Contrast, pa tient injected with 100 mL of Isovue 300. Delayed images through the kidneys were obtained. Coronal/s agittal reconstructions performed. CT DLP: 1229.6 mGycm Automated exposure control for dose reduction was used. FINDINGS: CHEST: Heart normal size without pericardial effusion. Aortic root is ectatic at 3.8 cm. Conventional vessel branching anatomy. Previous AP window lymph node has improved currently measuring 1.1 cm versus 1.6 cm, previously. Prev ious right tracheobronchial angle lymph node has resolved. Multiple prominent bilateral hilar lymph nodes are unchanged measuring up to 9 mm. No new thoracic lymphadenopathy. Interval improvement in the bilateral pulmonary nodules. A tiny 3 mm nodule along the minor fissure o n the right, axial image 32 is unchanged, probable benign etiology. Remaining pulmonary nodules seen previously have resolved. No consolidation or pleural effusion. ABDOMEN: Low-attenuation of the hepatic parenchyma suggesting fatty infiltration. No focal liver lesion seen. Portal venous system is patent. No biliary ductal dilatation. Gallbladder, right adrenal gland, right kidney, spleen, and pancreas appear satisfactory. Previously seen suprarenal nodularity adjacent to the right adrenal gland has improved. Nodularity pr eviously measured up to 1.9 cm currently measures only 8 mm. Additional nodule seen within the posterior left pararenal space has resolved as well. The large partially exophytic heterogeneously enhancing solid mass anterior from the left kidney cont inues to extend into the renal sinus region measuring up to 7.4 cm versus 8.0 cm, previously. No dilated small bowel, free fluid, or free air. The previous 1.9 cm left periaortic lymph node currently measures 1.0 cm. Normal appendix. Scattered moderate stool burden. Proximal sigmoid diverticulosis with continued circ umferential wall thickening, probable chronic diverticulitis. PELVIS: Circumferential bladder wall thickening. Prostate gland measures 4.5 cm wide. No abnormal fluid colle ction in the pelvis or pelvic lymphadenopathy. BONES: Mild degenerative changes at the hips. Right L5 hemisacralization with a degenerative assimilation beltran int. Trace grade 1 anterolisthesis at L3-L4. Hypertrophic facet arthropathy just within the mid to lo wer thoracic spine. No osseous destructive process seen. Redemonstrated intramuscular lipoma of the left subscapularis muscle measuring 5.9 x 2.0 x 1.8 cm, re ference coronal image 80 and sagittal image 97. IMPRESSION: 1. PARTIAL TREATMENT RESPONSE. THE PATIENT'S LARGE, PARTIALLY EXOPHYTIC LEFT KIDNEY RCC SHOWS SLIGHT DECREASE IN SIZE CURRENTLY MEASURING 7.4 CM VERSUS 8.0 CM, PREVIOUSLY. 2. HOWEVER, THE LEFT SUPRARENAL/ADRENAL NODULARITY SHOWS SIGNIFICANT IMPROVEMENT WITH ONLY A SMALL 8 MM NODULE REMAINING. PREVIOUSLY MEASURING UP TO 1.9 CM. 3. ADDITIONAL SOFT TISSUE DEPOSIT IN THE POSTERIOR LEFT PARARENAL SPACE, LEFT PARA-AORTIC LYMPH NODE, AND MULTIPLE PULMONARY NODULES HAVE RESOLVED. A 3 MM PULMONARY NODULE ALONG THE MINOR FISSURE REMAIN S AND IS UNCHANGED FROM PRIOR, SUSPECTED BENIGN ETIOLOGY.
== END | disposition home or self-care (01) ==
LOC: RADCTMAIN 11:48
PROVIDERS: ATTEND Internal Medicine Hematology & Oncology
DX: J98.4 Other disorders of lung (principal); R91.1 Solitary pulmonary nodule; C64.2 Malignant neoplasm of left kidney, except renal pelvis; Z91.030 Bee allergy status
CPT/HCPCS: 82565; 84520; 71260; 74177; 36415; Q9967

== ENCOUNTER → 2020-03-25 | Outpatient (CLI) | payer OTHER ==
[2020-03-25 11:10] LABS: African American GFR (CKD) >90 (>60 ml/min/1.73 sqM); Blood Urea Nitrogen 23 mg/dL (9-20); Non-African American GFR(CKD) 83 (>60 ml/min/1.73 sqM)
--- NOTE | 2020-03-25 12:39 | CT ---
EXAMINATION TYPE: CT ChestAbdPelvis w con DATE OF EXAM: 03/25/2020 COMPARISON: CT chest abdomen and pelvis December 22, 2019 and older CTs HISTORY: Renal cancer. CT DLP: 1198 mGycm. Automated Exposure Control for Dose Reduction was Utilized. CONTRAST: CT scan of the thorax, abdomen and pelvis is performed with IV Contrast, patient injected with 100 mL of Isovue 370. FINDINGS: LUNGS: Mild underlying emphysematous change redemonstrated. Some dependent atelectasis bilateral lowe r lungs. No suspicious new greater than 5 mm nodules or masses. There is no pleural effusion or pneu mothorax seen bilaterally. The tracheobronchial tree is patent. MEDIASTINUM: There is new right suprahilar rim enhancing 1.9 x 1.8 cm metastatic nodule or lymph node axial image 24. No pericardial effusion is seen. OTHER: Stable inferior left subscapularis intramuscular lipoma image 19 measuring 3.7 cm long axis. LIVER/GB: Liver remains low dense consistent with diffuse fatty infiltration. PANCREAS: No significant abnormality is seen. SPLEEN: No significant abnormality is seen. ADRENALS: No significant abnormality is seen. KIDNEYS: Symmetrical intramedullary uptake and excretion without hydronephrosis seen bilaterally. Per sistent partially exophytic anterior solid and cystic left mid kidney mass or neoplasm measuring 7.3 x 7.2 cm axial image 71 x 8.1 cm craniocaudal dimension coronal image 55 with some central calcificat ions. BOWEL: Normal-appearing appendix incidentally ascending from cecum. Oral contrast reaches level of th e hepatic flexure. No suspicious smaller large bowel dilatation. Diverticula level sigmoid colon with out CT evidence for acute diverticulitis. GENITAL ORGANS: Mildly enlarged prostate gland redemonstrated. LYMPH NODES: No new greater than 1cm abdominal or pelvic lymph nodes are appreciated. Stable prominen t but subcentimeter right groin lymph nodes. OSSEOUS STRUCTURES: Mild narrowing of both hip joints with mild to moderate subchondral cystic change and acetabular spurring. Partially sacralized right L5 vertebra. Multilevel spurring in the visualiz ed spine. OTHER: No significant additional abnormality is seen. IMPRESSION: Overall fairly stable primary left renal mass or neoplasm but there is local recurrent me tastatic disease right suprahilar level identified in the interval from most recent CT.
== END | disposition home or self-care (01) ==
LOC: RADCTMAIN 10:26
PROVIDERS: ATTEND Internal Medicine Hematology & Oncology
DX: C64.2 Malignant neoplasm of left kidney, except renal pelvis (principal); Z91.030 Bee allergy status
CPT/HCPCS: 82565; 84520; 71260; 74177; 36415; Q9967 ×2

== ENCOUNTER → 2020-08-16 | Outpatient (CLI) | payer OTHER ==
[2020-08-16 10:29] LABS: African American GFR (CKD) >90 (>60 ml/min/1.73 sqM); Blood Urea Nitrogen 21 mg/dL (9-20); Non-African American GFR(CKD) 84 (>60 ml/min/1.73 sqM)
--- NOTE | 2020-08-16 13:07 | CT ---
EXAMINATION TYPE: CT ChestAbdPelvis w con DATE OF EXAM: 08/16/2020 COMPARISON: Prior CT 03/25/2020 HISTORY: Renal CA CT DLP: 1039.1 mGycm Automated exposure control for dose reduction was used. CONTRAST: CT scan of the chest, abdomen and pelvis is performed with Oral Contrast and with IV Contrast, patien t injected with 100 mL of Isovue 300. FINDINGS: LUNGS: The lungs are grossly clear, there is no concerning parenchymal mass or nodule identified. T here is no pleural effusion or pneumothorax seen. The tracheobronchial tree is patent. MEDIASTINUM: The right hilar adenopathy seen on previous exam is again noted and measures approximate ly 2.6 cm 2.1 x 3.1 cm which is increased in volume slightly from prior when it measured 2.3 x 2.5 cm by 2.6. No pericardial effusion is seen. AORTA: No significant abnormality is seen. OTHER: Anterior to the lower margin of the liver there are some soft tissue foci, the larger the 2 m easures 15 mm just deep to the abdominal wall and may represent peritoneal implant. LIVER/GB: No significant abnormality is appreciated. PANCREAS: No significant abnormality is seen. SPLEEN: No significant abnormality is seen. ADRENALS: No significant abnormality is seen. KIDNEYS: Left renal mass now measures approximately 8.1 x 7.5 x 7.1 cm, increased slightly in volume, there are small soft tissue densities at the left renal hilum likely representing local adenopathy REPRODUCTIVE ORGANS: No gross abnormality seen. BOWEL: No significant interval change is seen, diverticular changes are present in the sigmoid colon . FREE AIR: No Free Air visible. ASCITES: None seen. RETROPERITONEAL ADENOPATHY: No retroperitoneal adenopathy is seen. LYMPH NODES: No greater than 1 cm abdominal or pelvic lymph nodes are appreciated. URINARY BLADDER: No significant abnormality is seen. PELVIC ADENOPATHY: None visualized. OSSEOUS STRUCTURES: No significant interval change is seen. IMPRESSION: There is some interval progression of disease
== END | disposition home or self-care (01) ==
LOC: RADCTMAIN 09:19
PROVIDERS: ATTEND Internal Medicine Hematology & Oncology
DX: C64.2 Malignant neoplasm of left kidney, except renal pelvis (principal)
CPT/HCPCS: 82565; 84520; 71260; 74177; 36415; Q9967 ×2

== ENCOUNTER → 2020-11-01 | Outpatient (CLI) | payer OTHER ==
--- NOTE | 2020-11-01 15:25 | CT ---
EXAMINATION TYPE: CT ChestAbdPelvis w con DATE OF EXAM: 11/01/2020 COMPARISON: Most recent CT August 16, 2020 and older CTs HISTORY: Renal CA CT DLP: 1143.1 mGycm. Automated Exposure Control for Dose Reduction was Utilized. CONTRAST: CT scan of the thorax, abdomen and pelvis is performed with oral and with IV Contrast, patient inject ed with 100 mL of Isovue 300. FINDINGS: LUNGS: Mild to moderate underlying emphysematous change is redemonstrated. There are new suspicious b ilateral pulmonary nodules. Nodules more numerous in the right lung versus left lung. For reference t here is 1.3 x 1.2 cm left upper lobe nodule axial image 21 on current study. There are 2 adjacent nod ules right upper lobe axial image 22 are noted, lateral nodule measures 7 x 5 mm. For reference there is new 8 mm right lower lobe nodule centrally echo image 36 MEDIASTINUM: There is new right hilar nodule or lymph node measuring 2.0 x 1.6 cm image 29. Adjacent right hilar 2.1 x 1.6 cm lymph node axial image 27 deep to this is a significant change from most rec ent CT. New 1.9 x 1.0 cm pericarinal lymph node on image 24. No cardiomegaly or pericardial effusion is seen. LIVER/GB: Visualized liver remains hypodense. There are new areas of irregular hyperdensity along the periphery for example anteriorly some nodular hyperdense material is present right hepatic lobe imag e 48 series 3 PANCREAS: No significant abnormality is seen. SPLEEN: No significant abnormality is seen. ADRENALS: No significant abnormality is seen. KIDNEYS: Persistent partially exophytic ball-shaped solid and cystic 7.4 x 6.3 cm mass or neoplasm ma ximum 64 with calcification measuring approximately 9 cm craniocaudal dimension consistent with known neoplasm. Symmetric cortical medullary uptake and excretion remains present. Enlarging adjacent 1.5 cm deep left renal lesion axial image 63 is noted. There are subcentimeter more prominent soft tissue nodules inferior to this. BOWEL: Oral contrast does not reach colonic level. Normal-appearing appendix redemonstrated. Divertic [place] throughout the colon greatest in sigmoid colon again seen GENITAL ORGANS: Enlarged prostate gland consistent with BPH. LYMPH NODES: Stable prominent but subcentimeter bilateral groin lymph nodes. No new and enlarging per itoneal deposits. For reference anterior 2.1 x 1.4 cm lesion increased in size axial image [address] recent prior. There is lateral left mid abdominal wall 2.8 x 2.4 cm lesion on image 71 increase in size from prior. There is new pelvic peritoneal 1.0 cm deposit axial image 106. OSSEOUS STRUCTURES: Transitional type vertebra lumbosacral junction redemonstrated. Multilevel spurri ng in the spine again seen. OTHER: No significant additional abnormality is seen. IMPRESSION: Persistent interval metastatic neoplastic progression. Recurrent pulmonary metastatic di sease. New thoracic adenopathy. New and Enlarging peritoneal metastatic disease.
== END | disposition home or self-care (01) ==
LOC: RADCTMAIN 13:18
PROVIDERS: ATTEND Internal Medicine Hematology & Oncology
DX: C78.00 Secondary malignant neoplasm of unspecified lung (principal); C78.6 Secondary malignant neoplasm of retroperitoneum and peritoneum; R59.0 Localized enlarged lymph nodes; C64.2 Malignant neoplasm of left kidney, except renal pelvis
CPT/HCPCS: 82565; 84520; 71260; 74177; 36415; Q9967

== ENCOUNTER → 2021-02-13 | Outpatient (CLI) | payer OTHER ==
[2021-02-13 09:11] LABS: African American GFR (CKD) >90 (>60 ml/min/1.73 sqM); Blood Urea Nitrogen 12 mg/dL (9-20); Non-African American GFR(CKD) 88 (>60 ml/min/1.73 sqM)
--- NOTE | 2021-02-13 10:40 | CT ---
EXAMINATION TYPE: CT ChestAbdPelvis w con DATE OF EXAM: 02/13/2021 COMPARISON: 11/01/2020 HISTORY: follow up renal cell cancer CT DLP: 691.6 mGycm CONTRAST: CT scan of the chest, abdomen and pelvis is performed with Oral Contrast and with IV Contrast, patien t injected with 100 mL of Isovue 300. CT Chest: LUNGS: Multiple right-sided pulmonary nodules persist total number estimated at between 18 and 20 nod ules. The nodules are smaller in size than on the prior study for reference a right pulmonary nodule previously measured 6.5 mm and currently measures 4 mm. 4-5 left-sided pulmonary nodules noted. The l argest seen previously 1.3 cm has essentially resolved. No new pulmonary nodules are identified. Flui d small area of infiltrate right upper lobe medially. MEDIASTINUM: Thoracic aorta is of normal caliber. The heart is not enlarged. Precarinal lymph node measures 9.8 mm and is unchanged from prior study. No new mediastinal adenopathy appreciated. HILAR STRUCTURES: Right tracheobronchial lymph node measuring 2.1 cm unchanged from prior study. No h ilar adenopathy is appreciated. OTHER: No significant abnormality. CONTRAST CT ABDOMEN AND PELVIS FINDINGS: LIVER/GB: No calcified gallstones. No space occupying hepatic lesion. Biliary tree is of normal ca liber. PANCREAS: There is abnormal attenuation thickening involving the pancreatic tail which is felt to ref lect direct invasion of the neoplasm into the pancreas. Fat plane is obscured. SPLEEN: No splenic enlargement. No lesion seen. ADRENALS: No nodule. No thickening. KIDNEYS/BLADDER exophytic left renal mass left upper lobe is redemonstrated and is slightly smaller i n size at 7.1 x 4.7 cm versus 7.4 x 6.3 cm previously. Additional cyst lower component of the mass me asures 5.6 cm versus 6.9 cm and demonstrates more cystic change on current examination. No new Renal masses are demonstrated. BOWEL: Normal appendix. Normal bowel caliber. No inflammation. GENITAL ORGANS: No gross abnormality. LYMPH NODES: No greater than 1cm abdominal or pelvic lymph nodes are appreciated. AORTA: No significant abnormality. OSSEOUS STRUCTURES: No significant abnormality is seen. OTHER: Peritoneal deposit right upper lobe image 75 measures 8 mm versus nearly 2.1 cm previously. Le ft upper quadrant peritoneal deposit is much smaller in size as well measuring 1.5 cm versus 2.8 cm p reviously. No new peritoneal deposits are seen. IMPRESSION: 1. Persistent pulmonary nodules however the nodules have decreased in overall size in the interval. 2. Persistent lobulated left renal mass compatible with renal cell carcinoma has decreased in size an d appears to be more cystic at this time. 3. There is a abnormal attenuation and fullness of the pancreatic tail which may reflect direct invas ion of malignancy. 4. Peritoneal nodules are redemonstrated however much smaller in size. No new nodules are evident.
== END | disposition home or self-care (01) ==
LOC: RADCTMAIN 08:16
PROVIDERS: ATTEND Internal Medicine Hematology & Oncology
DX: Z03.89 Encounter for observation for other suspected diseases and conditions ruled out (principal); C64.2 Malignant neoplasm of left kidney, except renal pelvis; R91.8 Other nonspecific abnormal finding of lung field; R93.3 Abnormal findings on diagnostic imaging of other parts of digestive tract; K66.8 Other specified disorders of peritoneum; Z91.030 Bee allergy status
CPT/HCPCS: 82565; 84520; 71260; 74177; 36415; Q9967

== ENCOUNTER → 2021-04-21 | Outpatient (CLI) | payer OTHER ==
[2021-04-21 11:49] LABS: African American GFR (CKD) >90 (>60 ml/min/1.73 sqM); Blood Urea Nitrogen 17 mg/dL (9-20); Non-African American GFR(CKD) >90 (>60 ml/min/1.73 sqM)
--- NOTE | 2021-04-21 20:01 | CT ---
EXAMINATION TYPE: CT ChestAbdPelvis w con DATE OF EXAM: 04/21/2021 COMPARISON: 02/13/2021, 11/01/2020 HISTORY: 55-year-old male C64.2, Renal cell carcinoma, Z03.89, observation for mets TECHNIQUE: Contiguous axial scanning of the chest, abdomen, and pelvis performed with IV Contrast, pa tient injected with 100 mL of Isovue 300. Delayed images through the kidneys were obtained. Coronal/s agittal reconstructions performed. CT DLP: 641.6 mGycm Automated exposure control for dose reduction was used. FINDINGS: CHEST: Heart normal size without pericardial effusion. Aorta normal caliber with conventional arch vessel branching anatomy. Right paratracheal lymph node 8 mm versus 6 mm, previously. Increasing right suprahilar soft tissue now more confluent measuring up to 4.5 x 2.1 cm, previously d iscontinuous. Right hilar soft tissue relatively stable at 3.5 x 1.9 cm versus 3.3 x 1.9 cm, previously. Lobulated pulmonary nodule posterior right upper lung now 1.7 cm versus 1.1 cm, previously. Multiple poorly defined pulmonary nodules are redemonstrated and overall are not significantly changed. A few scattered pulmonary nodules measuring up to 5 mm, peripheral right lower lobe, axial image 38, minima lly larger. No pleural effusion. ABDOMEN: POSTERIOR right hepatic dome mass slightly larger at 2.1 cm versus 1.2 cm, previously. Gallbladder, right adrenal gland, right kidney within normal limits. Heterogeneous mass measuring up to 7.7 x 5.3 cm involving the left kidney previously measured approxi mately 7.1 x 4.7 cm. There now appears to be some early invasion into the medial and inferior aspect of the spleen. Redemonstrated direct extension to involve the pancreatic tail. Approximately 6.0 cm o f the pancreatic tail shows altered enhancement, relatively unchanged from prior. Stable diffuse thickening of the left adrenal gland. Left para-aortic nodule measures slightly bulkier at 1.6 x 1.4 cm versus 1.6 x 1.2 cm, previously. Si milar left perinephric nodules. Left omental deposit measures 1.4 cm, unchanged. No dilated small bowel, free fluid, or free air. Normal appendix. Oral contrast progressed into the descending colon. There is sigmoid diverticulosis. Circumferential wall thickening along the midsegment of the sigmoid colon seems to be unchanged and may reflect chronic diverticulitis. PELVIS: Previous right inguinal mesh repair. Moderate circumferential bladder wall thickening. Prostatomegaly of 4.8 cm wide. Mild pelvic free fluid is unchanged. No evidence pelvic lymphadenopathy. BONES: Right L5 hemisacralization. A 5.2 x 4.0 x 1.0 cm lipoma of the subscapularis muscle belly unchanged. DISH throughout the thoracic spine. Degenerative grade 1 anterolisthesis L3-L4. Hypertrophic facet ar thropathy mid to lower lumbar spine. IMPRESSION: 1. SLIGHT INTERVAL DISEASE PROGRESSION: 2. INCREASING, NOW MORE CONFLUENT RIGHT SUPRAHILAR SOFT TISSUE MEASURING 4.5 X 2.1 CM. RIGHT HILAR SO FT TISSUE IS LARGELY UNCHANGED. 3. INCREASING SIZE OF THE LOBULATED RIGHT UPPER LUNG PULMONARY NODULE AT 1.7 CM VERSUS 1.1 CM, PREVIO USLY. NUMEROUS SMALLER NODULES ARE UNCHANGED. A FEW ARE MINIMALLY LARGER. 4. POSTERIOR RIGHT LIVER LOBE MASS SLIGHTLY LARGER at 2.1 CM VERSUS 1.2 CM, PREVIOUSLY. 5. LARGE HETEROGENEOUS LEFT RENAL MASS SLIGHTLY LARGER AT 7.7 CM VERSUS 7.1 CM, PREVIOUSLY. SUSPECT S OME NEW EARLY INVASION INTO THE SPLEEN. REDEMONSTRATED DIRECT INVASION TO INVOLVE THE PANCREATIC TAIL . 6. LEFT PERIAORTIC NODULE AND LEFT OMENTAL DEPOSIT RELATIVELY SIMILAR. 7. SIGMOID DIVERTICULOSIS. MODERATE CIRCUMFERENTIAL WALL THICKENING ALONG THE MID SIGMOID COLON IS UN CHANGED AND COULD REFLECT CHRONIC DIVERTICULITIS. CONSIDER DIRECT VISUALIZATION WHEN PATIENT ABLE.
== END | disposition home or self-care (01) ==
LOC: RADCTMAIN 11:03
PROVIDERS: ATTEND Internal Medicine Hematology & Oncology
DX: C64.2 Malignant neoplasm of left kidney, except renal pelvis (principal); R91.8 Other nonspecific abnormal finding of lung field; R16.0 Hepatomegaly, not elsewhere classified; K63.89 Other specified diseases of intestine
CPT/HCPCS: 82565; 84520; 71260; 74177; 36415; Q9967

== ENCOUNTER → 2021-07-31 | Outpatient (CLI) | payer OTHER ==
[2021-07-31 12:16] LABS: African American GFR (CKD) >90 (>60 ml/min/1.73 sqM); Blood Urea Nitrogen 18 mg/dL (9-20); Non-African American GFR(CKD) >90 (>60 ml/min/1.73 sqM)
--- NOTE | 2021-07-31 14:10 | CT ---
EXAMINATION TYPE: CT ChestAbdPelvis w con DATE OF EXAM: 07/31/2021 COMPARISON: Most recent CT April 21, 2021 and older studies HISTORY: Follow up to metastatic renal cell CA, Pt currently receiving daily oral chemo CT DLP: 592.8 mGycm. Automated Exposure Control for Dose Reduction was Utilized. CONTRAST: CT scan of the thorax, abdomen and pelvis is performed with oral and with IV Contrast, patient inject ed with 100 mL of Isovue 300. FINDINGS: LUNGS: Mild to moderate underlying emphysematous change is redemonstrated. Continued worsening right suprahilar spiculated mass measuring 5.6 x 3.8 cm axial image 19 versus 4.5 x 1.7 cm prior study axia l image 21. Right hilar soft tissue fairly slightly more prominent 4.0 x 2.2 cm axial image 24 versus prior study axial image 26, there is increasing mass effect or narrowing on the right upper lung bro nchus noted axial images 21 through 23. Lobulated nodule superior right lower lobe axial image 22 claire sures 1.6 x 1.5 cm fairly stable from prior study.. Scattered mild to moderate areas of scarring and reticulation and poorly defined subcentimeter nodularity throughout the right lung with some less pro minent left-sided involvement not significantly changed from most recent study. No pleural effusion o r pneumothorax seen. MEDIASTINUM: Worsening pericarinal lymph node axial image 23 now blending with subcarinal lymph node and right hilar lymph node is difficult to accurately measure but definitely increased in size. No ca rdiomegaly. Small to tiny Pericardial effusion is new from prior. LIVER/GB: Enlarging hypodense lesion posterior right hepatic dome up to 3.5 cm X image 42 from most r ecent prior. Worsening adjacent ascites. Likely new 1.2 cm metastatic lesion inferior right hepatic l obe axial image 71. PANCREAS: Heterogeneous hypodense irregular mass mid to distal body of pancreas into the tail extend ing into the upper pole left kidney shows continued increased prominence as is more confluent measuri ng 11.8 cm long axis axial image 57. SPLEEN: No significant abnormality is seen. ADRENALS: No significant abnormality is seen. KIDNEYS: Persistent partially exophytic cystic 5.3 x 5.0 cm cystic mass or neoplasm axial image 64 wi th calcification and with suprarenal extension becoming confluent with the distal pancreatic mass. Sy mmetric cortical medullary uptake and excretion remains present. More prominent deep left renal lesio n measuring 2.2 x 1.4 cm near aorta image 60 noted. BOWEL: Oral contrast does not reach colonic level. Normal-appearing appendix redemonstrated. Divertic [place] throughout the colon greatest in sigmoid colon again seen. More prominent superior wall thickenin g sigmoid colon axial image 97 is present. GENITAL ORGANS: Enlarged prostate gland consistent with BPH with central calcifications. LYMPH NODES: Stable prominent but subcentimeter bilateral groin lymph nodes. Slightly less prominent left lateral abdominal wall 8 mm low dense lesion axial image 67 versus 1.4 cm prior study. There is new pelvic peritoneal 1.0 cm deposit axial image 106. OSSEOUS STRUCTURES: Transitional type vertebra lumbosacral junction redemonstrated. Multilevel spurri ng in the spine again seen. OTHER: Worsening small to moderate amount of free fluid in the pelvis axial image 100. Prior right in guinal hernia mesh repair surgical change redemonstrated. IMPRESSION: Continued neoplastic metastatic progression. Worsening thoracic disease noted as detailed above. Worsening hepatic metastatic disease. Worsening involvement pancreatic tail up to the upper p ole of the left kidney with more confluent appearance on current study. Diffuse peritoneal disease is noted less prominent or slightly improved.
== END | disposition home or self-care (01) ==
LOC: RADCTMAIN 11:18
PROVIDERS: ATTEND Internal Medicine Hematology & Oncology
DX: C78.7 Secondary malignant neoplasm of liver and intrahepatic bile duct (principal); C64.2 Malignant neoplasm of left kidney, except renal pelvis; C78.01 Secondary malignant neoplasm of right lung; C79.89 Secondary malignant neoplasm of other specified sites
CPT/HCPCS: 82565; 84520; 71260; 74177; 36415; Q9967

== ENCOUNTER 2021-08-19 11:15 | Emergency (ER) | payer OTHER ==
[2021-08-19 11:44] VITALS: BP 108/74; PULSE 89; RESP 16; TEMP 97.5
--- NOTE | 2021-08-19 12:17 | XR ---
EXAMINATION TYPE: XR KUB DATE OF EXAM: 08/19/2021 12:07 PM CLINICAL HISTORY: Upper abdominal pain. History of renal cell cancer. TECHNIQUE: Two Upright KUB images of the abdomen are obtained. COMPARISON: CT CAP dated 07/31/2021. FINDINGS: Scattered gas seen in nondistended small bowel loops. Single gas prominent small bowel loop in the left mid abdomen with air-fluid levels. Near this level there are calcifications correspondin g to partially calcified cystic left renal mass. There is no visceromegaly or pneumoperitoneum. Multi level spurring in the spine. Visualized lung bases are clear. IMPRESSION: Overall nonspecific bowel gas pattern. Single dilated gas-filled small bowel loop. Closed loop obstru ction would be in the differential. Consider CT evaluation.
[2021-08-19 12:21] LABS: Anisocytosis Slight; Basophils % (A) 0 %; Eosinophils # (A) 0.1 k/uL (0-0.7); Eosinophils % (A) 1 %; HCT 27.5 % (39.0-53.0); HGB 8.4 gm/dL (13.0-17.5); Hypochromasia Slight; Lymphocytes # (A) 0.7 k/uL (1.0-4.8); Lymphocytes % (A) 6 %; MCH 22.7 pg (25.0-35.0); MCHC 30.6 g/dL (31.0-37.0); MCV 74.2 fL (80.0-100.0); Mean Platelet Volume 6.9; Microcytosis Moderate; Monocytes # (A) 0.8 k/uL (0-1.0); Monocytes % (A) 7 %; Neutrophils # (A) 8.8 k/uL (1.3-7.7); Neutrophils % (A) 84 %; Platelet Count 674 k/uL (150-450); RDW 16.8 % (11.5-15.5); WBC 10.5 k/uL (3.8-10.6)
[2021-08-19] MEDS ORDERED: ONDANSETRON 4 MG/2 ML VIAL IVP STA (12:28)
[2021-08-19] MEDS ORDERED: SODIUM CHLORIDE 0.9% 1,000 ML IV STA (12:28)
[2021-08-19] MEDS ORDERED: HYDROmorphone 1 MG/ML 1 ML SYRINGE IVP STA (12:28)
--- NOTE | 2021-08-19 12:28 | ED ---
Abdominal Pain HPI - General Chief Complaint: Abdominal Pain Stated Complaint: abd pain Time Seen by Provider: 08/19/21 12:20 Source: patient, RN notes reviewed Mode of arrival: wheelchair Limitations: no limitations - History of Present Illness Initial Comments: Patient is a 55-year-old male presented to the ED for abdominal pain. Patient states pain has gotten worse over the past 3 days, located in epigastric region. Patient denies any tenderness or pain elsewhere and stomach, no flank or back pain reported. Patient reports not sleeping well past couple days related to pain. Patient has episodic nausea and vomiting related to pain currently " feeling okay". Patient reports slight decrease in appetite, constipation, normal urination. Patient has pertinent medical history of renal cell carcinoma and states stopped treatment the past week. - Related Data Home Medications Medication Instructions Recorded Confirmed Atorvastatin [Lipitor] 20 mg PO HS 11/22/17 08/19/21 Losartan/Hydrochlorothiazide 1 tab PO HS 08/15/19 08/19/21 [Losartan-Hctz 100-25 mg Tab] Potassium Chloride [Klor-Con 20] 20 meq PO HS 08/19/21 08/19/21 Previous Rx's Medication Instructions Recorded HYDROcodone/APAP 7.5-325MG [Lutsen 1 tab PO Q6HR PRN 3 Days #12 tab 08/19/21 7.5-325] Allergies Allergy/AdvReac Type Severity Reaction Status Date / Time bee pollen Allergy Anaphylaxis Verified 08/19/21 13:42 Review of Systems ROS Statement: Those systems with pertinent positive or pertinent negative responses have been documented in the HPI. ROS Other: All systems not noted in ROS Statement are negative. Past Medical History Past Medical History: Cancer, Hyperlipidemia, Hypertension Additional Past Medical History / Comment(s): Renal cell carcinoma History of Any Multi-Drug Resistant Organisms: None Reported Past Surgical History: Hernia Repair, Orthopedic Surgery, Tonsillectomy Additional Past Surgical History / Comment(s): left shoulder surg. Past Anesthesia/Blood Transfusion Reactions: No Reported Reaction Past Psychological History: No Psychological Hx Reported Past Alcohol Use History: Occasional Past Drug Use History: Marijuana - Past Family History Mother Additional Family Medical History / Comment(s): Thyroid Father Family Medical History: Cancer General Exam Limitations: no limitations General appearance: alert, anxious, in distress (Pain) Respiratory exam: Present: normal lung sounds bilaterally. Absent: respiratory distress, wheezes, rales, rhonchi, stridor Cardiovascular Exam: Present: regular rate, normal rhythm, normal heart sounds. Absent: systolic murmur, diastolic murmur, rubs, gallop, clicks GI/Abdominal exam: Present: soft, tenderness, guarding, normal bowel sounds Back exam: Present: normal inspection Neurological exam: Present: alert, oriented X3 Skin exam: Present: warm, dry, intact, normal color Course Vital Signs 08/19/21 11:41 Temperature 97.5 F L Pulse Rate 89 Respiratory 16 Rate Blood Pressure 108/74 O2 Sat by Pulse 95 Oximetry Medical Decision Making - Medical Decision Making 55-year-old presented for abdominal pain. Patient has pain from metastatic renal carcinoma. Patient feels greatly improved he has no symptoms. Patient feels comfortable discharged with pain control return parameters were discussed. Patient did stop his treatment for renal carcinoma and is scheduled see Dong Galvez. - Lab Data Result diagrams: 08/19/21 11:54 08/19/21 11:54 Lab Results 08/19/21 08/19/21 Range/Units 11:54 11:54 WBC 10.5 (3.8-10.6) k/uL RBC 3.70 L (4.30-5.90) m/uL Hgb 8.4 L (13.0-17.5) gm/dL Hct 27.5 L (39.0-53.0) % MCV 74.2 L (80.0-100.0) fL MCH 22.7 L (25.0-35.0) pg MCHC 30.6 L (31.0-37.0) g/dL RDW 16.8 H (11.5-15.5) % Plt Count 674 H (150-450) k/uL MPV 6.9 Neutrophils % 84 % Lymphocytes % 6 % Monocytes % 7 % Eosinophils % 1 % Basophils % 0 % Neutrophils # 8.8 H (1.3-7.7) k/uL Lymphocytes # 0.7 L (1.0-4.8) k/uL Monocytes # 0.8 (0-1.0) k/uL Eosinophils # 0.1 (0-0.7) k/uL Basophils # 0.0 (0-0.2) k/uL Hypochromasia Slight Anisocytosis Slight Microcytosis Moderate Sodium 133 L (137-145) mmol/L Potassium 4.6 (3.5-5.1) mmol/L Chloride 95 L (98-107) mmol/L Carbon Dioxide 30 (22-30) mmol/L Anion Gap 8 mmol/L BUN 17 (9-20) mg/dL Creatinine 0.80 (0.66-1.25) mg/dL Est GFR (CKD-EPI)AfAm >90 (>60 ml/min/1.73 sqM) Est GFR (CKD-EPI)NonAf >90 (>60 ml/min/1.73 sqM) Glucose 125 H (74-99) mg/dL Calcium 9.8 (8.4-10.2) mg/dL Total Bilirubin 0.6 (0.2-1.3) mg/dL AST 25 (17-59) U/L ALT 23 (4-49) U/L Alkaline Phosphatase 148 H (38-126) U/L Total Protein 6.4 (6.3-8.2) g/dL Albumin 3.1 L (3.5-5.0) g/dL Amylase 76 (30-110) U/L Lipase 471 H (23-300) U/L Disposition Clinical Impression: Metastatic renal cell carcinoma, Abdominal pain Disposition: HOME SELF-CARE Condition: Stable Instructions (If sedation given, give patient instructions): Abdominal Pain (ED) Additional Instructions: Please return to the Emergency Department if symptoms worsen or any other concerns. Prescriptions: HYDROcodone/APAP 7.5-325MG [Lutsen 7.5-325] 1 tab PO Q6HR PRN 3 Days #12 tab PRN Reason: Pain Is patient prescribed a controlled substance at d/c from ED?: No Referrals: Dilip Guthrie MD [Primary Care Provider] - 1-2 days Time of Disposition: 15:09
[2021-08-19 12:33] LABS: ALT 23 U/L (4-49); AST 25 U/L (17-59); African American GFR (CKD) >90 (>60 ml/min/1.73 sqM); Albumin 3.1 g/dL (3.5-5.0); Alkaline Phosphatase 148 U/L (38-126); Amylase 76 U/L (30-110); Anion Gap 8 mmol/L; Blood Urea Nitrogen 17 mg/dL (9-20); Calcium 9.8 mg/dL (8.4-10.2); Carbon Dioxide 30 mmol/L (22-30); Chloride 95 mmol/L (98-107); Glucose 125 mg/dL (74-99); Lipase 471 U/L (23-300); Non-African American GFR(CKD) >90 (>60 ml/min/1.73 sqM); Potassium 4.6 mmol/L (3.5-5.1); Sodium 133 mmol/L (137-145); Total Bilirubin 0.6 mg/dL (0.2-1.3); Total Protein 6.4 g/dL (6.3-8.2)
== END 2021-08-19 15:26 | disposition home or self-care (01) ==
LOC: EC 11:15
DX: R10.13 Epigastric pain (principal); C79.00 Secondary malignant neoplasm of unspecified kidney and renal pelvis; C80.1 Malignant (primary) neoplasm, unspecified; E78.5 Hyperlipidemia, unspecified; I10 Essential (primary) hypertension; F12.90 Cannabis use, unspecified, uncomplicated; Z90.89 Acquired absence of other organs
CPT/HCPCS: 99284; 96374; 96375; 96361; 80053; 82150; 83690; 85025; 74018; J2405; J1170

== ENCOUNTER 2021-09-23 11:24 | Inpatient (IN) | payer OTHER ==
[2021-09-23] MEDS ORDERED: SODIUM CHLORIDE 0.9% 1,000 ML IV STA (11:39)
--- NOTE | 2021-09-23 11:58 | ED ---
General Adult HPI - General Stated complaint: abn lab values Time Seen by Provider: 09/23/21 11:39 Source: patient, family, RN/MD, RN notes reviewed Limitations: no limitations - History of Present Illness Initial comments: Patient is a pleasant 5-year-old male presenting to the emergency department from oncology. Patient has history of metastatic renal cell with increasing abdominal discomfort. Patient was going to have computed tomography scan of his abdomen however they needed to do noncontrast secondary to progressive renal problems. Patient states abdominal discomfort is moderate. Patient did take morphine prior to arrival and that seems to help. Patient does feel short of breath. - Related Data Home Medications Medication Instructions Recorded Confirmed Atorvastatin [Lipitor] 20 mg PO HS 11/22/17 09/17/21 Losartan/Hydrochlorothiazide 1 tab PO HS 08/15/19 09/17/21 [Losartan-Hctz 100-25 mg Tab] Potassium Chloride [Klor-Con 20] 20 meq PO HS 08/19/21 09/17/21 Morphine Sulfate [Morphine Sulfate 30 mg PO BID 09/17/21 09/17/21 ER] Previous Rx's Medication Instructions Recorded HYDROcodone/APAP 7.5-325MG [[place] 1 tab PO Q6HR PRN 3 Days #12 tab 08/19/21 7.5-325] Allergies Allergy/AdvReac Type Severity Reaction Status Date / Time bee pollen Allergy Anaphylaxis Verified 09/23/21 12:00 Review of Systems ROS Statement: Those systems with pertinent positive or pertinent negative responses have been documented in the HPI. ROS Other: All systems not noted in ROS Statement are negative. Constitutional: Denies: fever Eyes: Denies: eye pain ENT: Denies: ear pain Respiratory: Reports: dyspnea. Denies: cough Cardiovascular: Denies: chest pain Endocrine: Reports: fatigue Gastrointestinal: Reports: abdominal pain Genitourinary: Denies: dysuria Musculoskeletal: Denies: back pain Skin: Denies: rash Neurological: Reports: weakness Past Medical History Past Medical History: Cancer, Hyperlipidemia, Hypertension Additional Past Medical History / Comment(s): Renal cell carcinoma History of Any Multi-Drug Resistant Organisms: None Reported Past Surgical History: Hernia Repair, Orthopedic Surgery, Tonsillectomy Additional Past Surgical History / Comment(s): left shoulder surg. Past Anesthesia/Blood Transfusion Reactions: No Reported Reaction Smoking Status: Current every day smoker - Past Family History Mother Additional Family Medical History / Comment(s): Thyroid Father Family Medical History: Cancer General Exam Limitations: no limitations General appearance: alert Head exam: Present: normocephalic Eye exam: Present: normal appearance ENT exam: Present: mucous membranes dry Neck exam: Present: normal inspection Respiratory exam: Present: normal lung sounds bilaterally Cardiovascular Exam: Present: regular rate, normal rhythm GI/Abdominal exam: Present: soft, tenderness (Moderate diffuse tenderness) Extremities exam: Present: normal inspection Neurological exam: Present: alert Psychiatric exam: Present: normal affect, normal mood Skin exam: Present: normal color Course Vital Signs 09/23/21 11:57 Temperature 97.9 F Pulse Rate 91 Respiratory 20 Rate Blood Pressure 80/50 O2 Sat by Pulse 95 Oximetry Medical Decision Making - Medical Decision Making Patient is updated on results and plan. Case was discussed with Dr. Dhillon, who will admit coming Dr. Guthrie. - Lab Data Result diagrams: 09/23/21 12:17 09/23/21 12:17 Lab Results 09/23/21 09/23/21 09/23/21 Range/Units 12:17 12:17 12:17 WBC 18.5 H (3.8-10.6) k/uL RBC 3.06 L (4.30-5.90) m/uL Hgb 7.6 L (13.0-17.5) gm/dL Hct 23.6 L (39.0-53.0) % MCV 77.1 L (80.0-100.0) fL MCH 24.8 L (25.0-35.0) pg MCHC 32.2 (31.0-37.0) g/dL RDW 20.3 H (11.5-15.5) % Plt Count 643 H (150-450) k/uL MPV 6.8 Neutrophils % 92 % Lymphocytes % 3 % Monocytes % 4 % Eosinophils % 1 % Basophils % 0 % Neutrophils # 17.0 H (1.3-7.7) k/uL Lymphocytes # 0.5 L (1.0-4.8) k/uL Monocytes # 0.7 (0-1.0) k/uL Eosinophils # 0.1 (0-0.7) k/uL Basophils # 0.0 (0-0.2) k/uL Hypochromasia Moderate Anisocytosis Moderate Microcytosis Moderate PT 10.7 (9.0-12.0) sec INR 1.0 (<1.2) APTT 22.9 (22.0-30.0) sec Sodium 130 L (137-145) mmol/L Potassium 5.5 H (3.5-5.1) mmol/L Chloride 91 L (98-107) mmol/L Carbon Dioxide 29 (22-30) mmol/L Anion Gap 10 mmol/L BUN 65 H (9-20) mg/dL Creatinine 2.58 H (0.66-1.25) mg/dL Est GFR (CKD-EPI)AfAm 31 (>60 ml/min/1.73 sqM) Est GFR (CKD-EPI)NonAf 27 (>60 ml/min/1.73 sqM) Glucose 117 H (74-99) mg/dL Plasma Lactic Acid Todd (0.7-2.0) mmol/L Calcium 10.9 H (8.4-10.2) mg/dL Total Bilirubin 0.4 (0.2-1.3) mg/dL AST 22 (17-59) U/L ALT 12 (4-49) U/L Alkaline Phosphatase 169 H (38-126) U/L Total Protein 6.6 (6.3-8.2) g/dL Albumin 2.9 L (3.5-5.0) g/dL 09/23/21 Range/Units 12:17 WBC (3.8-10.6) k/uL RBC (4.30-5.90) m/uL Hgb (13.0-17.5) gm/dL Hct (39.0-53.0) % MCV (80.0-100.0) fL MCH (25.0-35.0) pg MCHC (31.0-37.0) g/dL RDW (11.5-15.5) % Plt Count (150-450) k/uL MPV Neutrophils % % Lymphocytes % % Monocytes % % Eosinophils % % Basophils % % Neutrophils # (1.3-7.7) k/uL Lymphocytes # (1.0-4.8) k/uL Monocytes # (0-1.0) k/uL Eosinophils # (0-0.7) k/uL Basophils # (0-0.2) k/uL Hypochromasia Anisocytosis Microcytosis PT (9.0-12.0) sec INR (<1.2) APTT (22.0-30.0) sec Sodium (137-145) mmol/L Potassium (3.5-5.1) mmol/L Chloride (98-107) mmol/L Carbon Dioxide (22-30) mmol/L Anion Gap mmol/L BUN (9-20) mg/dL Creatinine (0.66-1.25) mg/dL Est GFR (CKD-EPI)AfAm (>60 ml/min/1.73 sqM) Est GFR (CKD-EPI)NonAf (>60 ml/min/1.73 sqM) Glucose (74-99) mg/dL Plasma Lactic Acid Todd 1.4 (0.7-2.0) mmol/L Calcium (8.4-10.2) mg/dL Total Bilirubin (0.2-1.3) mg/dL AST (17-59) U/L ALT (4-49) U/L Alkaline Phosphatase (38-126) U/L Total Protein (6.3-8.2) g/dL Albumin (3.5-5.0) g/dL - Radiology Data Radiology results: report reviewed (CT abdomen and pelvis shows neoplastic metastatic progression. Worsening thoracic disease. Right upper lobe collapse. Mediastinal adenopathy. Hepatic metastasis. Worsening pancreatic tail more concluded appearance. Peritoneal metastasis) Disposition Clinical Impression: Metastatic renal cell carcinoma, Acute kidney injury Disposition: ADMITTED IP TO THIS HOSP Condition: Serious Is patient prescribed a controlled substance at d/c from ED?: No Referrals: Dilip Guthrie MD [Primary Care Provider] - 1-2 days Decision Time: 12:53
[2021-09-23 12:33] LABS: Anisocytosis Moderate; Basophils % (A) 0 %; Eosinophils # (A) 0.1 k/uL (0-0.7); Eosinophils % (A) 1 %; HCT 23.6 % (39.0-53.0); HGB 7.6 gm/dL (13.0-17.5); Hypochromasia Moderate; Lymphocytes # (A) 0.5 k/uL (1.0-4.8); Lymphocytes % (A) 3 %; MCH 24.8 pg (25.0-35.0); MCHC 32.2 g/dL (31.0-37.0); MCV 77.1 fL (80.0-100.0); Mean Platelet Volume 6.8; Microcytosis Moderate; Monocytes # (A) 0.7 k/uL (0-1.0); Monocytes % (A) 4 %; Neutrophils % (A) 92 %; Platelet Count 643 k/uL (150-450); RBC 3.06 m/uL (4.30-5.90); RDW 20.3 % (11.5-15.5); WBC 18.5 k/uL (3.8-10.6)
[2021-09-23 12:41] LABS: Albumin 2.9 g/dL (3.5-5.0); Calcium 10.9 mg/dL (8.4-10.2); Potassium 5.5 mmol/L (3.5-5.1); Total Bilirubin 0.4 mg/dL (0.2-1.3); Total Protein 6.6 g/dL (6.3-8.2)
[2021-09-23 12:52] LABS: Partial Thromboplastin Time 22.9 sec (22.0-30.0); Prothrombin Time 10.7 sec (9.0-12.0)
[2021-09-23] MEDS ORDERED: ONDANSETRON 4 MG/2 ML VIAL IVP PRN (12:56)
[2021-09-23] MEDS ORDERED: HYDROmorphone 0.5 MG/0.5 ML SYRINGE IVP PRN (12:56)
[2021-09-23] MEDS ORDERED: NALOXONE 0.4 MG/ML 1 ML VIAL IV PRN (12:56)
[2021-09-23] MEDS ORDERED: HYDROmorphone 1 MG/ML 1 ML SYRINGE IVP PRN (12:56)
[2021-09-23] MEDS: SODIUM CHLORIDE 0.9% 1,000 ML IV SCH ×3 (13:53→22:17)
[2021-09-23] MEDS: SODIUM CHLORIDE 0.9% 500 ML 500 ML IV SCH (13:54)
[2021-09-23] MEDS ORDERED: DEXAMETHASONE 0.5 MG/5 ML PO PRN (16:11)
[2021-09-23] MEDS ORDERED: HYDROcodone/APAP 10-325MG 1 EACH TAB PO PRN (16:11)
[2021-09-23] MEDS ORDERED: TEMAZEPAM 7.5 MG CAP PO PRN (16:11)
--- NOTE | 2021-09-23 16:59 | P.HPIM ---
<Sunny Segovia - Last Filed: 09/23/21 16:33> History of Present Illness H&P Date: 09/23/21 History of Presenting Illness: Patient is a very pleasant 55-year-old male with a past medical history of hypertension, hyperlipidemia, GERD, and metastatic renal cell carcinoma presented to the emergency department with a chief complaint of increasing abdominal pain. Patient was seen and fully evaluated in the ER. CBC revealed thrombocytosis with platelet count of 643 leukocytosis with WBC count of 18.5 with left shift, macrocytic microchromic anemia with hemoglobin of 7.6, hematoc rit 23.6, MCV 77.1, MCH 24.8, MCHC 32.2 and RDW of 20.3. CMP revealing hyponatremia with sodium of 130, hyperkalemia with potassium of 5.5, hypochloremia with chloride of 91, and an acute kidney injury with BUN of 65, creatinine 2.58, and GFR of 27 with baseline creatinine of 0.80. CT abdomen and pelvis completed prior to arrival in ED revealed continued significant neoplastic metastatic progression, worsening thoracic disease, mediastinal and bronchial invasion, complete right upper lobe collapse, marked mediastinal adenopathy with worsening hepatic metastatic disease, and worsening involvement of pancreatic tail up to the upper pole of left kidney, and marked peritoneal metastatic disease identified. In the emergency department patient also significantly hypotensive with blood pressure of 80/50. Patient is admitted under our services consultation to oncology and nephrology. Patient seen and fully evaluated at the bedside. He reports initially being diagnosed with metastatic renal cell carcinoma in July 2019. Patient reports that he underwent multiple treatments with several different anti-neoplastic medications and was informed about 2 months ago when he took his last and her neoplastic medication that he was currently out of treatment options and was then sent to [facility] in attempts to be part of a study. Patient states due to persistent hypotension he has been denied to be part of the study at this time and continues to follow with Dr Griffin. He reports greater than 60 pound weight loss over the past year. Admits to having poor oral intake secon nasir to decreased appetite and pain in abdomen. Patient reports over the past 1-2 weeks he has been experiencing increasing abdominal pain as well as distention accompanied by weakness, fatigue, and significant dyspnea with exertion. Patient denies having any headache, lightheadedness, dizziness, chest pain, palpitations, nausea, vomiting, or experiencing any numbness/tingling/weakness in his extremities. Patient reports he has been taking morphine at home for pain management and received last blood transfusion on 09/22/21. Review of systems: Pertinent positives and negatives as discussed in HPI, a complete review of systems was performed and all other systems are negative. Physical exam: General: Chronically ill-appearing, frail and thin appearance Derm: Skin warm and dry Head: Atraumatic, normocephalic and symmetric. Eyes: no lid lag, and anicteric sclera Mouth: no lip lesions, mucus membranes dry Cardiovascular: regular rate and rhythm with normal S1S2, soft murmur noted, positive posterior tibial pulses bilaterally, and cap refill < 2 seconds. Lungs: Respirations even, regular, and unlabored on 2 L O2 via nasal cannula. Lungs diminished, no rhonchi, no rales, no wheezing, and no accessory muscle usage. Abdominal: Taut, cirrhotic abdomen, diffuse tenderness to palpation. No guarding, no appreciable organomegaly Ext: ROM intact. No gross muscle atrophy, no edema, no contractures Neuro: Speech clear, face symmetrical and CN II-XII grossly intact with no noted focal neuro deficits Psych: Alert and oriented to person, place, time, and situation. Appropriate and pleasant affect. Assessment and Plan of Care: Acute kidney injury -BUN of 65, creatinine 2.58, and GFR of 27 with baseline creatinine of 0.80. -Likely resulting secondary to dehydration -Consult to nephrology -Continue hydration with IV fluids -Caution with nephrotoxic medications -We will continue to monitor closely with repeat a.m. labs. Increased abdominal pain and discomfort resulting from uncontrolled cancer pain Renal cell carcinoma with metastatic process Microcytic microchromic anemia, likely iron deficiency anemia resulting from metastatic process -CT abdomen and pelvis completed prior to arrival in ED revealed continued significant neoplastic metastatic progression, worsening thoracic disease, mediastinal and bronchial invasion, complete right upper lobe collapse, marked mediastinal adenopathy with worsening hepatic metastatic disease, and worsening involvement of pancreatic tail up to the upper pole of left kidney, and marked peritoneal metastatic disease identified. -Hemoglobin 7.6, patient hypotensive with blood pressure 80/50 and heart rate in 90s. Order placed to transfuse 1 unit PRBCs. -Consult placed to oncology, Dr. Griffin -Symptomatic care and pain management. -Consult to case management to set up arrangements for palliative care upon discharge. -Consult dietitian for malnutrition. -Continue Marinol -Continue home pain medication regimen consisting of [place] and morphine sulfate. Hypotension -Likely multifactorial secondary to hypovolemia resulting from hemoglobin of 7.6 accompanied by dehydration and use of opioid medications. -Hydration with IV fluids. -Transfuse 1 unit PRBCs -Monitor vital signs closely. Hyperkalemia, likely secondary to ARACELIS -Potassium 5.5 -Treatment of likely underlying cause, acute kidney injury with hydration of IV fluids at this time. -Patient to remain on continuous telemetry monitoring. -Continue close monitoring with repeat a.m. labs. Hyperlipidemia -Continue daily medication regimen with atorvastatin 20 mg nightly. The patient is admitted with an anticipated greater than 2 midnight stay for evaluation of acute kidney injury, dehydration, hypotension, and uncontrolled cancer pain. CODE STATUS: DO NOT RESUSCITATE/DO NOT INTUBATE DVT prophylaxis: Heparin Discussed with: Patient and patient's family at bedside. Anticipated discharge date: Clinical course to determine Anticipated discharge place: Home A total of 45 minutes was spent on the care of this complex patient more than 50% of the time was spent in counseling and care coordination. Past Medical History Past Medical History: Cancer, Hyperlipidemia, Hypertension Additional Past Medical History / Comment(s): Renal cell carcinoma History of Any Multi-Drug Resistant Organisms: None Reported Past Surgical History: Hernia Repair, Orthopedic Surgery, Tonsillectomy Additional Past Surgical History / Comment(s): left shoulder surg. Past Anesthesia/Blood Transfusion Reactions: No Reported Reaction Smoking Status: Current every day smoker - Past Family History Mother Additional Family Medical History / Comment(s): Thyroid Father Family Medical History: Cancer Medications and Allergies Home Medications Medication Instructions Recorded Confirmed Type Atorvastatin [Lipitor] 20 mg PO HS 11/22/17 09/23/21 History Potassium Chloride [Klor-Con 20] 20 meq PO DAILY 08/19/21 09/23/21 History Morphine Sulfate [Morphine Sulfate 30 mg PO Q12H 09/17/21 09/23/21 History ER] Dicyclomine [Bentyl] 10 mg PO Q8H PRN 09/23/21 09/23/21 History HYDROcodone/APAP 10-325MG [[place] 1 tab PO Q6H PRN 09/23/21 09/23/21 History 10-325] Omeprazole 40 mg PO DAILY 09/23/21 09/23/21 History Sennosides/Docusate Sodium [[place] 1 cap PO DAILY PRN 09/23/21 09/23/21 History Plus 8.6-50 mg Softgel] Temazepam [Restoril] 15 - 30 mg PO HS PRN 09/23/21 09/23/21 History dexAMETHasone [Decadron Elixir] 1 mg PO QID PRN 09/23/21 09/23/21 History dronabinoL [Marinol] 2.5 mg PO BID PRN 09/23/21 09/23/21 History Allergies Allergy/AdvReac Type Severity Reaction Status Date / Time bee pollen Allergy Anaphylaxis Verified 09/23/21 13:16 Physical Exam Vitals: Vital Signs Temp Pulse Resp BP Pulse Ox 09/23/21 11:57 97.9 F 91 20 80/50 95 Intake and Output 09/22/21 09/23/21 09/23/21 22:59 06:59 14:59 Other: Weight 58.06 kg Results CBC & Chem 7: 09/23/21 12:17 09/23/21 12:17 Labs: Abnormal Lab Results - Last 24 Hours (Table) 09/23/21 09/23/21 Range/Units 12:17 12:17 WBC 18.5 H (3.8-10.6) k/uL RBC 3.06 L (4.30-5.90) m/uL Hgb 7.6 L (13.0-17.5) gm/dL Hct 23.6 L (39.0-53.0) % MCV 77.1 L (80.0-100.0) fL MCH 24.8 L (25.0-35.0) pg RDW 20.3 H (11.5-15.5) % Plt Count 643 H (150-450) k/uL Neutrophils # 17.0 H (1.3-7.7) k/uL Lymphocytes # 0.5 L (1.0-4.8) k/uL Sodium 130 L (137-145) mmol/L Potassium 5.5 H (3.5-5.1) mmol/L Chloride 91 L (98-107) mmol/L BUN 65 H (9-20) mg/dL Creatinine 2.58 H (0.66-1.25) mg/dL Glucose 117 H (74-99) mg/dL Calcium 10.9 H (8.4-10.2) mg/dL Alkaline Phosphatase 169 H (38-126) U/L Albumin 2.9 L (3.5-5.0) g/dL <Shoaib Dhillon - Last Filed: 09/23/21 18:40> History of Present Illness Patient seen and evaluated by me independently. Patient was also seen by DENNIS, the original author of this note. I am in agreement with the subjective, physical exam, and assessment and plan as documented with the addition/changes of my exam and assessment below. Gen: awake, alert HEENT: normocephalic, atraumatic, good hearing acuity, moist mucous membranes Resp: good air exchange, breathing comfortably with no accessory muscle use CVS: good distal perfusion x 4, GI: soft, NTTP, ND : no SPT, no CVAT, gonzalez catheter not present MSK: no pitting edema, no clubbing Neuro: non-focal, moving all extremities Psych: cooperative, euthymic mood Plan: 1 unit of packed red blood cells 1 L fluid Nephrology consult, hematology consult Monitor electrolytes Warrants goals of care conversation in coming days Physical Exam Osteopathic Statement: *. No significant issues noted on an osteopathic structural exam other than those noted in the History and Physical/Consult. Vitals: Vital Signs Temp Pulse Resp BP Pulse Ox 09/23/21 16:27 97.9 F 96 16 101/60 90 L 09/23/21 16:17 97.8 F 71 18 91/54 09/23/21 16:16 98.7 F 91 18 90/49 92 L 09/23/21 14:22 94 18 95/50 90 L 09/23/21 11:57 97.9 F 91 20 80/50 95 Intake and Output 09/23/21 09/23/21 09/23/21 06:59 14:59 22:59 Intake Total 0 Balance 0 Intake: Blood Product 0 Rc As-1 Unit 0 [id number] Other: Weight 58.06 kg Results CBC & Chem 7: 09/23/21 12:17 09/23/21 12:17 Labs: Abnormal Lab Results - Last 24 Hours (Table) 09/23/21 09/23/21 09/23/21 Range/Units 12:17 12:17 12:56 WBC 18.5 H (3.8-10.6) k/uL RBC 3.06 L (4.30-5.90) m/uL Hgb 7.6 L (13.0-17.5) gm/dL Hct 23.6 L (39.0-53.0) % MCV 77.1 L (80.0-100.0) fL MCH 24.8 L (25.0-35.0) pg RDW 20.3 H (11.5-15.5) % Plt Count 643 H (150-450) k/uL Neutrophils # 17.0 H (1.3-7.7) k/uL Lymphocytes # 0.5 L (1.0-4.8) k/uL Sodium 130 L (137-145) mmol/L Potassium 5.5 H (3.5-5.1) mmol/L Chloride 91 L (98-107) mmol/L BUN 65 H (9-20) mg/dL Creatinine 2.58 H (0.66-1.25) mg/dL Glucose 117 H (74-99) mg/dL Calcium 10.9 H (8.4-10.2) mg/dL Alkaline Phosphatase 169 H (38-126) U/L Albumin 2.9 L (3.5-5.0) g/dL Crossmatch See Detail
--- NOTE | 2021-09-23 18:38 | P.CONS ---
History of Present Illness - Reason for Consult Consult date: 09/23/21 Onc care Requesting physician: Joe Dyson - Chief Complaint abdominal pain and distention - History of Present Illness Mister Paez is a pleasant 55-year-old male patient of Dr. Griffin initially seen in consult 08/16/19. He presented with gross hematuria, intermi ttent time 1 week, persistent 1 day, hemoglobin was stable. CT AP 08/15/19 showed a 7.6 x 8.3 x 8.9 cm complex solid and cystic mass, primarily solid, involving the left kidney, left suprarenal an adrenal nodule measuring 1.9 cm, and left periaortic retroperitoneal node measuring 1.[address] chest on 08/16/19 revealed scattered nodules throughout bilateral lungs including 5-6 mm lingular nodule, 1.5 x 1.3 cm cavitary lesion left lower lobe, 9 millimeter right lower lobe, and 9 x 8 mm right upper lobe. There is also a 2.8 x 1.6 hypodensity vascular lesion and right suprahilar mass. The patient had a bone scan which was negative. He underwent a renal biopsy in 08/16/19, biopsy came back positive for renal cell carcinoma grade 1. He started Yervoy + Opdivo on 09/07/19 and completed the dual Tx 11/10/19, cont on single agent Opdivo Q [address] 12/14/19 showed a good partial response, he continued on treatment. 04/13 CT showed a new nodule in the right suprahilar region, 1.8 cm, no other areas of progression, referred to rad on for SBRT. He did well until 11/14, CT showed progression in lung, mediastinal lymph nodes and peritoneum. Regimen was changed to Avelumab + Axitinib, but this was not covered by his insurance. He thus started Cabozantinib on 12/02/20. CT scans in late 04/14 showed progression. Was then changed over to Afinitor and Lenvima, starting 05/13/21. CT 08/14 un fortunately showed progression in the lung and mediastinum, then of the pancreas as well as the liver. Given the lack of standard treatment options, he was referred to [facility] He was felt to be a candidate for 2 clinical trials utilizing immunotherapy. However his hemoglobin was 6.9 due to which he was not eligible for both at that time. It was therefore recommended that he start Tivozanib-pt has not yet received medication. His labs showed hypoproliferative anemia due to inflammation, with ferritin well over 1000. He was recommended at his visit yesterday with Dr. Griffin that because of the persistent abdominal distention and discomfort that he have an ultrasound to be evaluated for a possible paracentesis. Patient refused at that time. Patient is now here in the emergency department with complaints of right upper quadrant pain and abdominal distention. Pending CT scan. Pain is better controlled with medications here in the ER. He denies fevers, difficulty swallowing, chest pain, nausea, vomiting, he is still having bowel movements. He denies any bleeding. Review of Systems 10 point review of systems is negative except as stated in HPI Past Medical History Past Medical History: Cancer, Hyperlipidemia, Hypertension Additional Past Medical History / Comment(s): Renal cell carcinoma History of Any Multi-Drug Resistant Organisms: None Reported Past Surgical History: Hernia Repair, Orthopedic Surgery, Tonsillectomy Additional Past Surgical History / Comment(s): left shoulder surg. Past Anesthesia/Blood Transfusion Reactions: No Reported Reaction Smoking Status: Current every day smoker - Past Family History Mother Additional Family Medical History / Comment(s): Thyroid Father Family Medical History: Cancer Medications and Allergies Home Medications Medication Instructions Recorded Confirmed Type Atorvastatin [Lipitor] 20 mg PO HS 11/22/17 09/23/21 History Potassium Chloride [Klor-Con 20] 20 meq PO DAILY 08/19/21 09/23/21 History Morphine Sulfate [Morphine Sulfate 30 mg PO Q12H 09/17/21 09/23/21 History ER] Dicyclomine [Bentyl] 10 mg PO Q8H PRN 09/23/21 09/23/21 History HYDROcodone/APAP 10-325MG [[place] 1 tab PO Q6H PRN 09/23/21 09/23/21 History 10-325] Omeprazole 40 mg PO DAILY 09/23/21 09/23/21 History Sennosides/Docusate Sodium [Senna 1 cap PO DAILY PRN 09/23/21 09/23/21 History Plus 8.6-50 mg Softgel] Temazepam [Restoril] 15 - 30 mg PO HS PRN 09/23/21 09/23/21 History dexAMETHasone [Decadron Elixir] 1 mg PO QID PRN 09/23/21 09/23/21 History dronabinoL [Marinol] 2.5 mg PO BID PRN 09/23/21 09/23/21 History Allergies Allergy/AdvReac Type Severity Reaction Status Date / Time bee pollen Allergy Anaphylaxis Verified 09/23/21 13:16 Physical Exam Vitals: Vital Signs Temp Pulse Resp BP Pulse Ox 09/23/21 16:17 97.8 F 71 18 91/54 09/23/21 16:16 98.7 F 91 18 90/49 92 L 09/23/21 14:22 94 18 95/50 90 L 09/23/21 11:57 97.9 F 91 20 80/50 95 Intake and Output 09/23/21 09/23/21 09/23/21 06:59 14:59 22:59 Intake Total 0 Balance 0 Intake: Blood Product 0 Rc As-1 Unit 0 [id number] Other: Weight 58.06 kg - Constitutional General appearance: cooperative, no acute distress, thin - EENT Eyes: anicteric sclerae, EOMI ENT: hearing grossly normal, normal oropharynx - Neck Neck: no lymphadenopathy - Respiratory Respiratory: bilateral: diminished - Cardiovascular Rhythm: regular Heart sounds: normal: S1, S2 Abnormal Heart Sounds: no systolic murmur, no diastolic murmur, no rub, no S3 Gallop, no S4 Gallop, no click, no other leg Peripheral Edema: bilateral: None - Gastrointestinal right upper quadrant distended, protruding, dullness to percussion anteriorly, distant bowel sounds General gastrointestinal: soft, tenderness - Neurologic Neurologic: CNII-XII intact - Musculoskeletal Musculoskeletal: strength equal bilaterally - Psychiatric Psychiatric: A&O x's 3, appropriate affect, intact judgment & insight Results CBC & Chem 7: 09/23/21 12:17 09/23/21 12:17 Labs: Abnormal Lab Results - Last 24 Hours (Table) 09/23/21 09/23/21 09/23/21 Range/Units 12:17 12:17 12:56 WBC 18.5 H (3.8-10.6) k/uL RBC 3.06 L (4.30-5.90) m/uL Hgb 7.6 L (13.0-17.5) gm/dL Hct 23.6 L (39.0-53.0) % MCV 77.1 L (80.0-100.0) fL MCH 24.8 L (25.0-35.0) pg RDW 20.3 H (11.5-15.5) % Plt Count 643 H (150-450) k/uL Neutrophils # 17.0 H (1.3-7.7) k/uL Lymphocytes # 0.5 L (1.0-4.8) k/uL Sodium 130 L (137-145) mmol/L Potassium 5.5 H (3.5-5.1) mmol/L Chloride 91 L (98-107) mmol/L BUN 65 H (9-20) mg/dL Creatinine 2.58 H (0.66-1.25) mg/dL Glucose 117 H (74-99) mg/dL Calcium 10.9 H (8.4-10.2) mg/dL Alkaline Phosphatase 169 H (38-126) U/L Albumin 2.9 L (3.5-5.0) g/dL Crossmatch See Detail Assessment and Plan (1) Metastatic renal cell carcinoma Narrative/Plan: Dr. Griffin just saw the patient yesterday in the office. He is going on a study drug with the Oncology team at [facility]. Will try to help manage symptoms. Current Visit: Yes Status: Chronic Priority: High Code(s): C64.9 - MALIGNANT NEOPLASM OF UNSP KIDNEY, EXCEPT RENAL PELVIS SNOMED Code(s): 447526226 Plan: Pending results of CT scan to see if the abdomen has fluid that can be removed or if is tumor causing patient's distention and pain. Agree with aggressive pain management.
[2021-09-23] MEDS: ATORVASTATIN 20 MG TAB PO SCH (20:22)
[2021-09-23] MEDS: SENNOSIDES-DOCUSATE SODIUM 1 EACH TAB PO SCH (20:27)
[2021-09-23] MEDS: DICYCLOMINE 10 MG CAP PO PRN (20:27)
[2021-09-23] MEDS: MORPHINE SULFATE ER 30 MG TABLET PO SCH (20:27)
[2021-09-23 21:05] LABS: Appearance,Urine Cloudy (Clear); Bacteria,Urine Rare /hpf; Bilirubin,Urine Negative (Negative); Blood,Urine Negative (Negative); Color,Urine Yellow; Glucose,Urine (UA) Negative (Negative); Granular Casts,Urine 7 /lpf (0); Hyaline Casts,Urine 28 /lpf (0-2); Ketones,Urine Negative (Negative); Leukocyte Esterase,Urine Negative (Negative); Mucus,Urine Rare /hpf; Nitrite,Urine Negative (Negative); Protein,Urine 1+ (Negative); RBC,Urine 2 /hpf (0-5); Squamous Epithelial Cell,Urine 2 /hpf (0-4); Urobilinogen,Urine <2.0 mg/dL (<2.0); WBC,Urine 5 /hpf (0-5)
[2021-09-24] MEDS: HEPARIN SODIUM,PORCINE/PF 5,000 UNIT/0.5 ML SYRINGE SQ SCH ×4 (00:04→22:38)
--- NOTE | 2021-09-24 07:54 | XR ---
EXAMINATION TYPE: XR chest 1V DATE OF EXAM: 09/24/2021 COMPARISON: CT 09/23/2021 INDICATION: Hypoxia TECHNIQUE: Single frontal view of the chest is obtained. FINDINGS: The heart size is normal. The pulmonary vasculature is normal. There is a large mass or consolidation in the right upper lobe. Additional multiple pulmonary nodules . Present bilaterally. Findings are suspicious for primary metastatic carcinoma. Small right pleural effusion is present. Degenerative changes are noted at the shoulders. IMPRESSION: 1. Right upper lobe mass with multiple bilateral pulmonary nodules suspicious for neoplasm. 2. Small right pleural effusion
[2021-09-24] MEDS: SENNOSIDES-DOCUSATE SODIUM 1 EACH TAB PO SCH ×2 (08:45→22:33)
[2021-09-24] MEDS: MORPHINE SULFATE ER 30 MG TABLET PO SCH ×2 (08:45→22:33)
[2021-09-24] MEDS: DICYCLOMINE 10 MG CAP PO PRN (08:52)
[2021-09-24 08:59] LABS: Anisocytosis Slight; Basophils % (A) 0 %; Eosinophils % (A) 0 %; HCT 26.5 % (39.0-53.0); HGB 8.3 gm/dL (13.0-17.5); Hypochromasia Moderate; Lymphocytes # (A) 0.5 k/uL (1.0-4.8); Lymphocytes % (A) 3 %; MCH 24.6 pg (25.0-35.0); MCHC 31.3 g/dL (31.0-37.0); MCV 78.7 fL (80.0-100.0); Mean Platelet Volume 6.8; Microcytosis Slight; Monocytes # (A) 0.7 k/uL (0-1.0); Monocytes % (A) 5 %; Neutrophils # (A) 13.6 k/uL (1.3-7.7); Neutrophils % (A) 91 %; Platelet Count 570 k/uL (150-450); Poikilocytosis Slight; RBC 3.36 m/uL (4.30-5.90); RDW 19.4 % (11.5-15.5); WBC 14.9 k/uL (3.8-10.6)
[2021-09-24] MEDS ORDERED: NON FORMULARY DRUG (Omeprazole [Omeprazole] 40 MG Capsule) PO SCH (09:00)
[2021-09-24] MEDS ORDERED: PANTOPRAZOLE 40 MG/10 ML VIAL IV SCH (09:00)
[2021-09-24 10:58] VITALS: BMI 20.6
--- NOTE | 2021-09-24 11:47 | P.PN ---
Subjective Progress Note Date: 09/24/21 Principal diagnosis: Long discussion with patient today regarding his overall diagnosis and lack of response to treatment with recent therapy. Unfortunately, at this point it appea rs his disease is progressimng faster the the ability to treat it and our recommendation is to move forward with hospice care, he agrees and has asked if he can let his know. A consult has been placed for info meeting with patient and and the goal is home with hospice in 24-48 hours. Objective - Vital Signs Vital signs: Vital Signs Temp 97.4 F L 09/24/21 07:23 Pulse 84 09/24/21 07:23 Resp 22 09/24/21 07:23 BP 97/60 09/24/21 07:23 Pulse Ox 97 09/24/21 07:52 Intake & Output 09/23/21 09/24/21 09/24/21 18:59 06:59 18:59 Intake Total 310 Balance 310 Weight 58.06 kg 58.06 kg 58.06 kg Intake: Blood Product 310 Rc As-1 Unit 310 [id number] Other: Voiding Method Urinal # Voids 2 - Exam Alert Sarmad coloring NAD Thin neck:supple Lungs: CTA Heart: ir,reg Abd: tender, soft Ext: pedal edema - Labs CBC & Chem 7: 09/24/21 08:24 09/23/21 12:17 Labs: Abnormal Lab Results - Last 24 Hours (Table) 09/23/21 09/23/21 09/23/21 Range/Units 12:17 12:17 12:17 WBC 18.5 H (3.8-10.6) k/uL RBC 3.06 L (4.30-5.90) m/uL Hgb 7.6 L (13.0-17.5) gm/dL Hct 23.6 L (39.0-53.0) % MCV 77.1 L (80.0-100.0) fL MCH 24.8 L (25.0-35.0) pg RDW 20.3 H (11.5-15.5) % Plt Count 643 H (150-450) k/uL Neutrophils # 17.0 H (1.3-7.7) k/uL Lymphocytes # 0.5 L (1.0-4.8) k/uL Sodium 130 L (137-145) mmol/L Potassium 5.5 H (3.5-5.1) mmol/L Chloride 91 L (98-107) mmol/L BUN 65 H (9-20) mg/dL Creatinine 2.58 H (0.66-1.25) mg/dL Glucose 117 H (74-99) mg/dL Calcium 10.9 H (8.4-10.2) mg/dL Alkaline Phosphatase 169 H (38-126) U/L Albumin 2.9 L (3.5-5.0) g/dL Urine Protein 1+ H (Negative) Urine Bacteria Rare H (None) /hpf Hyaline Casts 28 H (0-2) /lpf Urine Mucus Rare H (None) /hpf Crossmatch 09/23/21 09/24/21 Range/Units 12:56 08:24 WBC 14.9 H (3.8-10.6) k/uL RBC 3.36 L (4.30-5.90) m/uL Hgb 8.3 L (13.0-17.5) gm/dL Hct 26.5 L (39.0-53.0) % MCV 78.7 L (80.0-100.0) fL MCH 24.6 L (25.0-35.0) pg RDW 19.4 H (11.5-15.5) % Plt Count 570 H (150-450) k/uL Neutrophils # 13.6 H (1.3-7.7) k/uL Lymphocytes # 0.5 L (1.0-4.8) k/uL Sodium (137-145) mmol/L Potassium (3.5-5.1) mmol/L Chloride (98-107) mmol/L BUN (9-20) mg/dL Creatinine (0.66-1.25) mg/dL Glucose (74-99) mg/dL Calcium (8.4-10.2) mg/dL Alkaline Phosphatase (38-126) U/L Albumin (3.5-5.0) g/dL Urine Protein (Negative) Urine Bacteria (None) /hpf Hyaline Casts (0-2) /lpf Urine Mucus (None) /hpf Crossmatch See Detail Assessment and Plan (1) Acute kidney injury Current Visit: Yes Status: Acute Code(s): N17.9 - ACUTE KIDNEY FAILURE, UNSPECIFIED SNOMED Code(s): 68227479 (2) Metastatic renal cell carcinoma Current Visit: Yes Status: Chronic Priority: High Code(s): C64.9 - MALIGNANT NEOPLASM OF UNSP KIDNEY, EXCEPT RENAL PELVIS SNOMED Code(s): 757257337 Plan: Long discussion with patient this am regarding overall goals of care. At this time his diagnosis is unfortunetly progressing faster than the ability to treat and Dr. klein has recommended Hospice care. Patient agrees and states he would like to go home, and he will discuss with . Hospice Consult placed Physician Attest: I have completed the full history and physical and developed the above impression and plan, agree with dictation, dictated as a ascribe.
[2021-09-24 12:00] LABS: African American GFR (CKD) 51.8 (60.0-200.0); Albumin 2.8 g/dL (3.8-4.9); Albumin/Globulin Ratio 0.74 (1.60-3.17); Anion Gap 14.7 mmol/L (10.00-18.00); BUN/Creat Ratio 33.76 Ratio (12.00-20.00); Blood Urea Nitrogen 57.4 mg/dL (9.0-27.0); Calcium 10.4 mg/dL (8.7-10.3); Carbon Dioxide 24.3 mmol/L (20.0-27.5); Globulin 3.8 g/dL (1.6-3.3); Non-African American GFR(CKD) 44.7 (60.0-200.0); Total Bilirubin 0.3 mg/dL (0.30-1.20); Total Protein 6.6 g/dL (6.2-8.2)
[2021-09-24] MEDS: SODIUM CHLORIDE 0.9% 1,000 ML IV SCH (15:51)
--- NOTE | 2021-09-24 17:25 | CONS ---
CONSULTATION REASON FOR CONSULT: Renal failure. HISTORY OF PRESENT ILLNESS: The patient is a 55-year-old male who was admitted to the hospital yesterday with complaints of abdominal pain. The patient has an underlying history of metastatic renal cell cancer status post chemotherapy. Patient has also been evaluated at [facility]. He has had poor oral intake recently. He states that he has been voiding okay. No obvious bleeding per patient. His creatinine was 2.58 on initial admission yesterday with a potassium of 5.5. It is down to 1.7 now and serum potassium is 5.0. Previous creatinine was 0.8 on 08/19/2021. Chest, abdomen and pelvic CT done yesterday shows progressive metastatic disease in the lungs with mediastinal lymphadenopathy, worsening hepatic disease and pancreatic involvement as well. Significant peritoneal metastatic disease noted as well. Currently, patient has been voiding. His blood pressure is on the lower side. He is maintained on IV fluids. PAST MEDICAL HISTORY: Metastatic renal cancer with progression, hyperlipidemia, hypertension. PAST SURGICAL HISTORY: Hernia repair, tonsillectomy, left shoulder surgery. MEDICATIONS: Medications prior to admission included Lipitor, potassium, morphine, Restoril, Decadron, Marinol. EXAMINATION: Patient is comfortable, awake, not in any acute distress. Blood pressure 81/56, heart rate 89 per minute. He is afebrile. Examination of the HEART S1, S2. Examination of LUNGS decreased breath sounds at the bases. ABDOMEN is soft, nontender. Examination lower EXTREMITIES shows no significant edema. [employer] exam grossly intact. LAB: Show sodium 134, potassium 5.0, BUN 57, creatinine 1.7, hemoglobin 8.3 g/dL. ASSESSMENT: 1. Acute kidney injury prerenal currently improving with IV hydration. Also associated with hypotension. 2. Metastatic renal cancer with significant mets in the lungs, liver and in the pancreas. 3. Hyperkalemia associated with acute kidney injury, currently improved. 4. Anemia, multifactorial. PLAN: Continue with IV fluids. Add midodrine if blood pressure remains low. So far, renal function has improved. No hydronephrosis noted on the CT scan. Overall prognosis is guarded. Thank you for this consultation. MMODL / IJN: [id number] /
--- NOTE | 2021-09-24 18:34 | P.PN ---
Subjective Progress Note Date: 09/24/21 History of Presenting Illness: Patient is a very pleasant 55-year-old male with a past medical history of hypertension, hyperlipidemia, GERD, and metastatic renal cell carcinoma presented to the emergency department with a chief complaint of increasing abdominal pain. Patient was seen and fully evaluated in the ER. CBC revealed thrombocytosis with platelet count of 643 leukocytosis with WBC count of 18.5 with left shift, macrocytic microchromic anemia with hemoglobin of 7.6, hematocrit 23.6, MCV 77.1, MCH 24.8, MCHC 32.2 and RDW of 20.3. CMP revealing hyponatremia with sodium of 130, hyperkalemia with potassium of 5.5, hypochloremia with chloride of 91, and an acute kidney injury with BUN of 65, creatinine 2.58, and GFR of 27 with baseline creatinine of 0.80. CT abdomen and pelvis completed prior to arrival in ED revealed continued significant keenan plastic metastatic progression, worsening thoracic disease, mediastinal and bronchial invasion, complete right upper lobe collapse, marked mediastinal adenopathy with worsening hepatic metastatic disease, and worsening involvement of pancreatic tail up to the upper pole of left kidney, and marked peritoneal metastatic disease identified. In the emergency department patient also significantly hypotensive with blood pressure of 80/50. Patient is admitted under our services consultation to oncology and nephrology. Patient reports he has been taking morphine at home for pain management and received last blood transfusion on 09/22/21. Physical exam: Patient was seen and fully evaluated at the bedside this morning. He reports feeling better than he did yesterday, but states continued abdominal pain and lack of appetite. Patient did state he was able to eat one sausage link in 1- 1/2 pancakes this morning. He and his are meeting with oncology team and [facility] this afternoon. Morning labs reveal resolution of hyperkalemia and improvement in renal function with BUN of 557.4, creatinine 1.7, and GFR 44.7. Patient denies having any lightheadedness, dizziness, chest pain, or palpitations. General: Chronically ill-appearing, frail and thin appearance Derm: Skin warm and dry Head: Atraumatic, normocephalic and symmetric. Eyes: no lid lag, and anicteric sclera Mouth: no lip lesions, mucus membranes dry Cardiovascular: regular rate and rhythm with normal S1S2, soft murmur noted, positive posterior tibial pulses bilaterally, and cap refill < 2 seconds. Lungs: Respirations even, regular, and unlabored on 2 L O2 via nasal cannula. Lungs diminished, no rhonchi, no rales, no wheezing, and no accessory muscle usage. Abdominal: Taut, cirrhotic abdomen, diffuse tenderness to palpation. No guarding, no appreciable organomegaly Ext: ROM intact. No gross muscle atrophy, no edema, no contractures Neuro: Speech clear, face symmetrical and CN II-XII grossly intact with no noted focal neuro deficits Psych: Alert and oriented to person, place, time, and situation. Appropriate and pleasant affect. Assessment and Plan of Care: Acute kidney injury, improved with hydration -BUN of 65, creatinine 2.58, and GFR of 27 with baseline creatinine of 0.80. Improved with BUN of 57.4, creatinine 1.7, and GFR 44.7. -Consult to nephrology -Continue hydration with IV fluids -Caution with nephrotoxic medications -We will continue to monitor closely with repeat a.m. labs. Increased abdominal pain and discomfort resulting from uncontrolled cancer pain Renal cell carcinoma with metastatic process Acute on chronic Microcytic microchromic anemia, likely iron deficiency anemia resulting from metastatic process -CT abdomen and pelvis completed prior to arrival in ED revealed continued significant neoplastic metastatic progression, worsening thoracic disease, mediastinal and bronchial invasion, complete right upper lobe collapse, marked mediastinal adenopathy with worsening hepatic metastatic disease, and worsening involvement of pancreatic tail up to the upper pole of left kidney, and marked peritoneal metastatic disease identified. -Hemoglobin 7.6, patient hypotensive with blood pressure 80/50 and heart rate in 90s. Order placed to transfuse 1 unit PRBCs. -Consult placed to oncology, Dr. Griffin -Symptomatic care and pain management. -Consult to case management to set up arrangements for palliative care upon discharge. -Consult dietitian for malnutrition. -Continue Marinol -Continue home pain medication regimen consisting of Oelrichs and morphine sulfate. -Patient has meeting this afternoon with oncology and [facility] hospice team. Hypotension -Likely multifactorial secondary to hypovolemia resulting from hemoglobin of 7.6 accompanied by dehydration and use of opioid medications. -Continue Hydration with IV fluids. -Received 1 unit PRBCs -Monitor vital signs closely. Hyperkalemia, likely secondary to ARACELIS, resolved Hyperlipidemia -Continue daily medication regimen with atorvastatin 20 mg nightly. The patient is admitted with an anticipated greater than 2 midnight stay for evaluation of acute kidney injury, dehydration, hypotension, and uncontrolled cancer pain. CODE STATUS: DO NOT RESUSCITATE/DO NOT INTUBATE DVT prophylaxis: Heparin Discussed with: Patient, RN, and patient's family at bedside. Anticipated discharge date: Clinical course to determine Anticipated discharge place: Home likely on hospice A total of 40 minutes was spent on the care of this complex patient more than 50% of the time was spent in counseling and care coordination. Objective - Vital Signs Vital signs: Vital Signs Temp 97.4 F L 09/24/21 07:23 Pulse 84 09/24/21 07:23 Resp 22 09/24/21 07:23 BP 97/60 09/24/21 07:23 Pulse Ox 97 09/24/21 07:52 Intake & Output 09/23/21 09/24/21 09/24/21 18:59 06:59 18:59 Intake Total 310 Balance 310 Weight 58.06 kg 58.06 kg Intake: Blood Product 310 Rc As-1 Unit 310 [id number] Other: Voiding Method Urinal # Voids 2 - Labs CBC & Chem 7: 09/24/21 08:24 09/24/21 08:20 Labs: Abnormal Lab Results - Last 24 Hours (Table) 09/23/21 09/23/21 09/23/21 Range/Units 12:17 12:17 12:17 WBC 18.5 H (3.8-10.6) k/uL RBC 3.06 L (4.30-5.90) m/uL Hgb 7.6 L (13.0-17.5) gm/dL Hct 23.6 L (39.0-53.0) % MCV 77.1 L (80.0-100.0) fL MCH 24.8 L (25.0-35.0) pg RDW 20.3 H (11.5-15.5) % Plt Count 643 H (150-450) k/uL Neutrophils # 17.0 H (1.3-7.7) k/uL Lymphocytes # 0.5 L (1.0-4.8) k/uL Sodium 130 L (137-145) mmol/L Potassium 5.5 H (3.5-5.1) mmol/L Chloride 91 L (98-107) mmol/L BUN 65 H (9-20) mg/dL Creatinine 2.58 H (0.66-1.25) mg/dL Glucose 117 H (74-99) mg/dL Calcium 10.9 H (8.4-10.2) mg/dL Alkaline Phosphatase 169 H (38-126) U/L Albumin 2.9 L (3.5-5.0) g/dL Urine Protein 1+ H (Negative) Urine Bacteria Rare H (None) /hpf Hyaline Casts 28 H (0-2) /lpf Urine Mucus Rare H (None) /hpf Crossmatch 09/23/21 Range/Units 12:56 WBC (3.8-10.6) k/uL RBC (4.30-5.90) m/uL Hgb (13.0-17.5) gm/dL Hct (39.0-53.0) % MCV (80.0-100.0) fL MCH (25.0-35.0) pg RDW (11.5-15.5) % Plt Count (150-450) k/uL Neutrophils # (1.3-7.7) k/uL Lymphocytes # (1.0-4.8) k/uL Sodium (137-145) mmol/L Potassium (3.5-5.1) mmol/L Chloride (98-107) mmol/L BUN (9-20) mg/dL Creatinine (0.66-1.25) mg/dL Glucose (74-99) mg/dL Calcium (8.4-10.2) mg/dL Alkaline Phosphatase (38-126) U/L Albumin (3.5-5.0) g/dL Urine Protein (Negative) Urine Bacteria (None) /hpf Hyaline Casts (0-2) /lpf Urine Mucus (None) /hpf Crossmatch See Detail
[2021-09-24] MEDS: ATORVASTATIN 20 MG TAB PO SCH (22:33)
[2021-09-25 05:12] VITALS: PULSE 95
[2021-09-25] MEDS ORDERED: PANTOPRAZOLE 40 MG TABLET PO SCH (07:30)
[2021-09-25] MEDS: SENNOSIDES-DOCUSATE SODIUM 1 EACH TAB PO SCH (09:33)
[2021-09-25] MEDS: HEPARIN SODIUM,PORCINE/PF 5,000 UNIT/0.5 ML SYRINGE SQ SCH (09:33)
[2021-09-25] MEDS: MORPHINE SULFATE ER 30 MG TABLET PO SCH (09:33)
[2021-09-25 10:11] VITALS: BP 103/49; RESP 16; TEMP 97.5
--- NOTE | 2021-09-25 10:14 | P.PN ---
Subjective Progress Note Date: 09/25/21 Patient feels okay still weak no complaints of active chest pain or shortness of breath Constitutional: No acute distress, conversant, pleasant Eyes: Anicteric sclerae, moist conjunctiva, no lid-lag PERRLA ENMT: NC/AT Oropharynx clear, no erythema, exudates Neck: Supple, FROM, no masses, or JVD No carotid bruits No thyromegaly Lungs: Clear to auscultation Clear to percussion Normal respiratory effort, no accessory muscle use Cardiovascular: Heart regular in rate and rhythm, No murmurs, gallops, or rubs No peripheral edema Abdominal: Soft Nontender, no guarding, rebound or rigidity Abdomen moving with respiration Normoactive bowel sounds No hepatomegaly, No splenomegaly No palpable mass No abdominal wall hernia noted Skin: Normal temperature, tone, texture, turgor No induration No subcutaneous nodules No rash, lesions No ulcers Extremities: No digital cyanosis No clubbing Pedal pulses intact and symmetrical Radial pulses intact and symmetrical Normal gait and station No calf tenderness Psychiatric:Alert and oriented to person, place and time Appropriate affect Intact judgement Neuro: Muscles Strength 5/5 in all 4 extremities Sensation to light touch grossly present throughout Cranial nerves II-XII grossly intact No focal sensory deficits Acute kidney injury, improved with hydration -BUN of 65, creatinine 2.58, and GFR of 27 with baseline creatinine of 0.80. Improved with BUN of 57.4, creatinine 1.7, and GFR 44.7. -Consult to nephrology -Continue hydration with IV fluids -Caution with nephrotoxic medications -We will continue to monitor closely with repeat a.m. labs. Increased abdominal pain and discomfort resulting from uncontrolled cancer pain Renal cell carcinoma with metastatic process Acute on chronic Microcytic microchromic anemia, likely iron deficiency anemia resulting from metastatic process -CT abdomen and pelvis completed prior to arrival in ED revealed continued significant neoplastic metastatic progression, worsening thoracic disease, mediastinal and bronchial invasion, complete right upper lobe collapse, marked mediastinal adenopathy with worsening hepatic metastatic disease, and worsening involvement of pancreatic tail up to the upper pole of left kidney, and marked peritoneal metastatic disease identified. -Hemoglobin 7.6, patient hypotensive with blood pressure 80/50 and heart rate in 90s. Order placed to transfuse 1 unit PRBCs. -Consult placed to oncology, Dr. Griffin -Symptomatic care and pain management. -Consult to case management to set up arrangements for palliative care upon discharge. -Consult dietitian for malnutrition. -Continue Marinol -Continue home pain medication regimen consisting of [place] and morphine sulfate. -Patient has meeting this afternoon with oncology and [facility] team. Hypotension -Likely multifactorial secondary to hypovolemia resulting from hemoglobin of 7.6 accompanied by dehydration and use of opioid medications. -Continue Hydration with IV fluids. -Received 1 unit PRBCs -Monitor vital signs closely. Hyperkalemia, likely secondary to ARACELIS, resolved Hyperlipidemia -Continue daily medication regimen with atorvastatin 20 mg nightly. We will continue to monitor hemoglobin patient thinking about going home with hospice Objective - Vital Signs Vital signs: Vital Signs Temp 97.5 F L 09/25/21 08:00 Pulse 95 09/25/21 08:00 Resp 16 09/25/21 08:00 BP 103/49 09/25/21 08:00 Pulse Ox 100 09/25/21 08:00 Intake & Output 09/24/21 09/25/21 09/25/21 18:59 06:59 18:59 Intake Total 900 100 Balance 900 100 Weight 58.06 kg Intake: Intake, IV Titration 900 Amount Sodium Chloride 0.9% 1, 900 000 ml @ 75 mls/hr IV . [id number] [facility] Rx#:[id number] Oral 100 Other: Voiding Method Urinal Urinal # Voids 1 - Labs CBC & Chem 7: 09/24/21 08:24 09/24/21 08:20 Labs: Abnormal Lab Results - Last 24 Hours (Table) 09/24/21 Range/Units 08:20 Sodium 134 L (135-145) mmol/L Chloride 95 L (96-109) mmol/L BUN 57.4 H (9.0-27.0) mg/dL Creatinine 1.7 H (0.6-1.5) mg/dL Est GFR (CKD-EPI)AfAm 51.8 L (60.0-200.0) Est GFR (CKD-EPI)NonAf 44.7 L (60.0-200.0) BUN/Creatinine Ratio 33.76 H (12.00-20.00) Ratio Glucose 112 H (70-110) mg/dL Calcium 10.4 H (8.7-10.3) mg/dL Alkaline Phosphatase 157 H (41-126) U/L Albumin 2.8 L (3.8-4.9) g/dL Globulin 3.8 H (1.6-3.3) g/dL Albumin/Globulin Ratio 0.74 L (1.60-3.17) g/dL
[2021-09-25 11:13] LABS: African American GFR (CKD) 57 (>60 ml/min/1.73 sqM); Anion Gap 9 mmol/L; Blood Urea Nitrogen 56 mg/dL (9-20); Calcium 10.2 mg/dL (8.4-10.2); Carbon Dioxide 26 mmol/L (22-30); Chloride 96 mmol/L (98-107); Glucose 95 mg/dL (74-99); Non-African American GFR(CKD) 50 (>60 ml/min/1.73 sqM); Potassium 4.6 mmol/L (3.5-5.1); Sodium 131 mmol/L (137-145)
--- NOTE | 2021-09-25 11:22 | P.DS ---
Providers Date of admission: 09/23/21 12:56 Attending physician: Shoaib Dhillon MD Consults: 09/23/21 12:57 Consult Physician Routine Consulting Provider: Jere Griffin Consult Reason/Comments: Oncological care Do you want consulting provider notified?: Yes Consult Physician Routine Consulting Provider: Misty Ornelas Consult Reason/Comments: tony Do you want consulting provider notified?: Yes Primary care physician: [facility] Hospital Course: trey is a very pleasant 55-year-old male with a past medical history of hypertension, hyperlipidemia, GERD, and metastatic renal cell carcinoma presented to the emergency department with a chief complaint of increasing abdominal pain. Patient was seen and fully evaluated in the ER. CBC revealed thrombocytosis with platelet count of 643 leukocytosis with WBC count of 18.5 with left shift, macrocytic microchromic anemia with hemoglobin of 7.6, hematocrit 23.6, MCV 77.1, MCH 24.8, MCHC 32.2 and RDW of 20.3. CMP revealing hyponatremia with sodium of 130, hyperkalemia with potassium of 5.5, hypochloremia with chloride of 91, and an acute kidney injury with BUN of 65, creatinine 2.58, and GFR of 27 with baseline creatinine of 0.80. CT abdomen and pelvis completed prior to arrival in ED revealed continued significant neoplastic metastatic progression, worsening thoracic disease, mediastinal and bronchial invasion, complete right upper lobe collapse, marked mediastinal adenopathy with worsening hepatic metastatic disease, and worsening involvement of pancreatic tail up to the upper pole of left kidney, and marked peritoneal metastatic disease identified. In the emergency department patient also significantly hypotensive with blood pressure of 80/50. Patient is admitted under our services consultation to oncology and nephrology. Patient reports he has been taking morphine at home for pain management and received last blood transfusion on 09/22/21. Patient underwent transfusion of 1 unit of packed RBCs patient was to go home today with hospice Family at bedside Physical exam stable Chest decreased breath sounds bilaterally Discharge plan Acute renal failure Hypotension multifactorial Metastatic renal cancer patient wants to go home with hospice Follow up with oncology and primary care physician Patient Condition at Discharge: Poor Plan - Discharge Summary Discharge Rx Participant: No New Discharge Prescriptions: Continue Atorvastatin [Lipitor] 20 mg PO HS Morphine Sulfate [Morphine Sulfate ER] 30 mg PO Q12H Temazepam [Restoril] 15 - 30 mg PO HS PRN PRN Reason: Insomnia dronabinoL [Marinol] 2.5 mg PO BID PRN PRN Reason: Nausea HYDROcodone/APAP 10-325MG [[place] 10-325] 1 tab PO Q6H PRN PRN Reason: Pain Potassium Chloride [Klor-Con 20] 20 meq PO DAILY Sennosides/Docusate Sodium [Senna Plus 8.6-50 mg Softgel] 1 cap PO DAILY PRN PRN Reason: Constipation Omeprazole 40 mg PO DAILY Dicyclomine [Bentyl] 10 mg PO Q8H PRN PRN Reason: Gi Upset dexAMETHasone [Decadron Elixir] 1 mg PO QID PRN PRN Reason: mouth pain Discharge Medication List Atorvastatin [Lipitor] 20 mg PO HS 11/22/17 [History] Potassium Chloride [Klor-Con 20] 20 meq PO DAILY 08/19/21 [History] Morphine Sulfate [Morphine Sulfate ER] 30 mg PO Q12H 09/17/21 [History] Dicyclomine [Bentyl] 10 mg PO Q8H PRN 09/23/21 [History] HYDROcodone/APAP 10-325MG [[place] 10-325] 1 tab PO Q6H PRN 09/23/21 [History] Omeprazole 40 mg PO DAILY 09/23/21 [History] Sennosides/Docusate Sodium [Senna Plus 8.6-50 mg Softgel] 1 cap PO DAILY PRN 09/23/21 [History] Temazepam [Restoril] 15 - 30 mg PO HS PRN 09/23/21 [History] dexAMETHasone [Decadron Elixir] 1 mg PO QID PRN 09/23/21 [History] dronabinoL [Marinol] 2.5 mg PO BID PRN 09/23/21 [History] Follow up Appointment(s)/Referral(s): Dilip Guthrie MD [Primary Care Provider] - 1-2 days Al Kang [NON-STAFF] - 09/25/21 Discharge Disposition: HOME WITH HOSPICE
--- NOTE | 2021-09-25 16:24 | PN ---
PROGRESS NOTE Patient is seen for followup for acute kidney injury, mostly prerenal, improved with IV hydration. This morning patient states he is feeling slightly better. However, he is going home with hospice. On examination today, blood pressure 103/49, heart rate 95 per minute. He is afebrile. He appears euvolemic. No evidence of edema, lower extremities. Labs are reviewed. Sodium 131, potassium 4.6, BUN 56, creatinine 1.56, calcium 10.2. ASSESSMENT: 1. Acute kidney injury, prerenal, currently improved with IV hydration. 2. Metastatic renal cell cancer with significant metastases in the lungs and pancreas, going for hospice care. 3. Hypercalcemia. PLAN: Will sign off. MMODL / IJN: [id number] /
== END 2021-09-25 12:23 | disposition hospice, home (50) | DRG 683 ==
LOC: EC 11:24 → 5NMEDONC 12:56
PROVIDERS: ADMIT Internal Medicine; ATTEND Internal Medicine
PROC: 30233N1 Transfusion of Nonautologous Red Blood Cells into Peripheral Vein, Percutaneous Approach (ICD-10-PCS; principal; 2021-09-23)
DX: N17.9 Acute kidney failure, unspecified (principal); C64.9 Malignant neoplasm of unspecified kidney, except renal pelvis; C78.00 Secondary malignant neoplasm of unspecified lung; C78.6 Secondary malignant neoplasm of retroperitoneum and peritoneum; C78.7 Secondary malignant neoplasm of liver and intrahepatic bile duct; D61.9 Aplastic anemia, unspecified; E87.1 Hypo-osmolality and hyponatremia; C78.1 Secondary malignant neoplasm of mediastinum; C78.89 Secondary malignant neoplasm of other digestive organs; J98.19 Other pulmonary collapse; R31.0 Gross hematuria; R59.0 Localized enlarged lymph nodes; I95.9 Hypotension, unspecified; Z51.5 Encounter for palliative care; Z66 Do not resuscitate; Z20.822 Contact with and (suspected) exposure to COVID-19; F17.210 Nicotine dependence, cigarettes, uncomplicated; D72.829 Elevated white blood cell count, unspecified; I10 Essential (primary) hypertension; D75.839 Thrombocytosis, unspecified; E78.5 Hyperlipidemia, unspecified; E83.52 Hypercalcemia; E87.5 Hyperkalemia; E87.8 Other disorders of electrolyte and fluid balance, not elsewhere classified; Z79.899 Other long term (current) drug therapy; Z92.21 Personal history of antineoplastic chemotherapy; Z90.89 Acquired absence of other organs; Z80.9 Family history of malignant neoplasm, unspecified; Z98.890 Other specified postprocedural states
CPT/HCPCS: 36415; 71045; 80048; 80053; 81001; 83605; 85025; 85610; 85730; 86850; 86900; 86901; 86920; 87635; 94760; 99285

== ENCOUNTER → 2021-09-23 | Outpatient (CLI) | payer OTHER ==
--- NOTE | 2021-09-23 11:47 | CT ---
EXAMINATION TYPE: CT ChestAbdPelvis wo con DATE OF EXAM: 09/23/2021 COMPARISON: Most recent CT July 31, 2021 and older studies HISTORY: Metastatic Renal cell cancer, stomach bloating, loss of appetite, weight loss. CT DLP: 876 mGycm. Automated Exposure Control for Dose Reduction was Utilized. TECHNIQUE: CT scan of the thorax, abdomen and pelvis is performed attempted with oral but without IV contrast. FINDINGS: LUNGS: Mild to moderate underlying emphysematous change is redemonstrated. There are now innumerable scattered pulmonary nodules bilaterally. Difficult to measure the central right suprahilar mass likel y increased in size as there is tumor extension into the right mainstem bronchus coronal image 48. Th ere is now complete collapse of the right upper lobe. There is redemonstration of tumor extension to right hilar level and mediastinal invasion as there is no normal mediastinal fat, there is soft tissu e tumor extending all the way to the left hilar region on current study. This is isodense relative to the right and left pulmonary arteries. Small to tiny right greater than left pleural effusions on current study. No pneumothorax seen bilate rally MEDIASTINUM: Confluent abnormal adenopathy in the mediastinum measures nearly 12 cm transversely axia l image 26. No cardiomegaly. Small to tiny Pericardial effusion is redemonstrated. LIVER/GB: Enlarging hypodense lesion posterior right hepatic dome up to 6.7 cm this measured 48 from most recent prior CT. No new suspicious 1.9 cm lesion axial image 51 anteriorly. Additional few small er new hypodense metastatic lesions present. Dependent density in gallbladder consistent with sludge and/or small stones redemonstrated. PANCREAS: Heterogeneous enlargement of the distal pancreatic body and tail with irregular tissue con tiguous or invading the upper pole left kidney is more prominent than prior study. SPLEEN: No significant abnormality is seen. ADRENALS: Difficult to accurately visualize. KIDNEYS: Enlarging heterogeneous mass confluent with the pancreatic tail lesion is noted upper pole l evel left kidney. Foci of calcification centrally redemonstrated. BOWEL: Small contrast seen in the stomach. No suspicious small or large bowel dilatation. Moderate to severe suspicious wall thickening at level of sigmoid colon axial image 98 is redemonstrated. GENITAL ORGANS: Mildly enlarged prostate gland consistent with BPH with central calcifications. LYMPH NODES: Innumerable and mesenteric nodules with peritoneal deposits anteriorly throughout the en tire abdomen. There are enlarging deposits in the paracolic gutters bilaterally. Tiny amount of intra -abdominal ascites. OSSEOUS STRUCTURES: Transitional type vertebra lumbosacral junction redemonstrated. Multilevel spurri ng in the spine again seen. OTHER: Moderate amount of free fluid in the pelvis axial image 104 increased in size from prior, does not completely layer dependently. Prior right inguinal hernia mesh repair surgical change redemonstr ated. IMPRESSION: Continue significant neoplastic metastatic progression. Worsening thoracic disease noted as detailed above. There is mediastinal and bronchial invasion. Complete right upper lobe collapse. M arked mediastinal adenopathy Worsening hepatic metastatic disease. Worsening involvement pancreatic t ail up to the upper pole of the left kidney with more confluent appearance on current study. Marked p eritoneal metastatic disease now identified.
== END | disposition home or self-care (01) ==
LOC: RADCTMAIN 09:56
PROVIDERS: ATTEND Internal Medicine Hematology & Oncology
DX: C64.2 Malignant neoplasm of left kidney, except renal pelvis (principal); C78.7 Secondary malignant neoplasm of liver and intrahepatic bile duct; C78.6 Secondary malignant neoplasm of retroperitoneum and peritoneum; C78.01 Secondary malignant neoplasm of right lung; C78.02 Secondary malignant neoplasm of left lung; J98.19 Other pulmonary collapse; J43.9 Emphysema, unspecified
CPT/HCPCS: 36415; 71250; 74176; 82565; 84520